=== PATIENT | male | born 1955 | race Caucasian/White ===

== ENCOUNTER 2017-10-16 12:46 | Inpatient (IN) | payer MEDICARE, MEDICAID ==
[~2017-10-16] VITALS: Ht 170.2 cm; Wt 77.0 kg
[~2017-10-16 12:46] MED LIST: ASPI-664 PO; CLOP75TA27 PO; CYAN500T46 PO; ERGO500014 PO; GABA300C16 PO; LANT3I SC; LOPE2CAP PO; OMEP10CA4 PO; ONDA4TAB8 PO; PRED1TAB2 PO; PRED5TAB PO; PSEU-83 PO; VANCOMYCIN 1 GM in NS 250 ML IVPB SCH; [UNRECOGNIZED DRUG - OTHER]
[2017-10-16] MEDS ORDERED: SODIUM CHLORIDE 0.9% 1L BAG IV* STA (13:01)
--- NOTE | 2017-10-16 13:40 | RADRPT ---
PROCEDURE: XR Chest. CLINICAL INDICATION: Chest pain , sepsis TECHNIQUE: Single frontal view of the chest was obtained COMPARISON: CR CHEST 12/07/2015 FINDINGS: The heart is enlarged. The lungs are clear. There is no pleural effusion or pneumothorax. RPTAT: AA IMPRESSION: Mild cardiomegaly. No focal infiltrate. .Philip Bishop MD, MD Date Time Electronically viewed and signed by .Philip Bishop MD, MD on 10/16/2017 13:40 .S/
[2017-10-16 13:57] LABS: BASOPHILS % 0.4 % (0.0-2.0); EOSINOPHILS # 0.1 10^3/ul (0.0-0.5); EOSINOPHILS % 1.7 % (0.0-7.0); HEMATOCRIT 28.2 % (42.0-52.0); LYMPHOCYTES # 0.7 10^3/ul (0.8-2.9); LYMPHOCYTES % 9.2 % (15.0-51.0); MEAN CORPUSCULAR HEMOGLOBIN 28.9 pg (29.0-33.0); MEAN CORPUSCULAR HGB CONC 31.9 g/dl (32.0-37.0); MEAN CORPUSCULAR VOLUME 90.7 fl (82.0-101.0); MEAN PLATELET VOLUME 9.7 fl (7.4-10.4); MONOCYTE # 0.4 10^3/ul (0.3-0.9); MONOCYTES % 4.6 % (0.0-11.0); NEUTROPHIL # 6.5 10^3/ul (1.6-7.5); NEUTROPHILS % 83.7 % (39.0-77.0); PLATELET COUNT 386 10^3/UL (140-415); RED BLOOD COUNT 3.11 10^6/ul (4.70-6.10); RED CELL DISTRIBUTION WIDTH 12.5 % (11.5-14.5); WHITE BLOOD COUNT 7.8 10^3/ul (4.8-10.8)
[2017-10-16] MEDS ORDERED: NACL 0.9% 3 ML SYG IV SCH (14:00)
[2017-10-16] MEDS ORDERED: BROMFENAC SODIUM 1.7 ML OPH DROP LEFT EYE PRN (14:00)
[2017-10-16] MEDS ORDERED: VANCOMYCIN IV PER PHARMACY XX SCH (14:00)
[2017-10-16] MEDS: ACCU-CHEK XX SCH ×2 (14:00→19:50)
[2017-10-16] MEDS ORDERED: LOPERAMIDE 2 MG CAP PO PRN (14:00)
[2017-10-16] MEDS ORDERED: HYDROCODONE/APAP (5/325) TAB PO PRN ×2 (14:00)
[2017-10-16 14:12] LABS: INR 1.09; PROTIME 14.3 Sec (11.9-14.9); PT RATIO 1.1
[2017-10-16 14:13] LABS: PARTIAL THROMBOPLASTIN TIME 35.4 Sec (25.0-35.0)
[2017-10-16 14:16] LABS: ALANINE AMINOTRANSFERASE 25 IU/L (13-69); ALBUMIN 3.1 g/dl (3.3-4.9); ALKALINE PHOSPHATASE 108 IU/L (42-121); ANION GAP 12 (8-16); ASPARTATE AMINO TRANSFERASE 18 IU/L (15-46); BILIRUBIN,INDIRECT 0.2 mg/dl (0-1.1); BILIRUBIN,TOTAL 0.2 mg/dl (0.2-1.3); BLOOD UREA NITROGEN 19 mg/dl (7-20); CARBON DIOXIDE 30 mmol/L (21-31); CHLORIDE 101 mmol/L (97-110); CREATININE 1.17 mg/dl (0.61-1.24); GLUCOSE 188 mg/dl (70-220); POTASSIUM 4.4 mmol/L (3.5-5.1); SODIUM 139 mmol/L (135-144); TOTAL PROTEIN 7.5 g/dl (6.1-8.1)
[2017-10-16] MEDS ORDERED: PIPER-TAZO 3.375 GM IV (PMX) 50 ML IV ONE (14:30)
[2017-10-16 14:31] LABS: TROPONIN-I < 0.012 ng/ml (0.00-0.12)
--- NOTE | 2017-10-16 14:39 | ERD ---
ER Documentation Chief Complaint Chief Complaint RIGHT HAND CELLULITIS X1.5MNTHS HPI Patient is a 61-year-old male with diabetes who presents with a right wrist infection. The patient was sent by Dr. Stovall and electrical parts reconditioner for infection. The patient said that he has been going on for 1 month and is getting worse. He said that he noticed a "huge bump" on the dorsal portion of the wrist. The patient is right-handed. He had a fever last week which he said was low-grade. He has not had any antibiotics as of yet. He was seen by Dr. Oakes from hand surgery previously as well who initially thought this could be pseudogout. ROS All systems reviewed and are negative except as per history of present illness. Medications Home Meds Active Scripts Ergocalciferol* (Drisdol* (Vitamin D2)) 50,000 Unit Cap, [address] UNIT PO Fr@09, # 10 CAP Prov:JIN STOVALL MD 12/08/15 Insulin Glargine* (Lantus*) 100 Unit/Ml Soln, 10 UNIT SC Q12 for 30 Days, 2 Refills Prov:JIN STOVALL MD 12/08/15 Reported Medications Cyanocobalamin* (Vitamin B12*) 500 Mcg Tab, 1000 MCG PO DAILY, TAB 02/16/16 [tear dropps] No Conflict Check 12/26/15 Ondansetron Hcl* (Zofran*) 4 Mg Tablet, 4 MG PO Q8, TAB 12/26/15 Omeprazole* (Omeprazole*) 10 Mg Capsule.dr, 10 MG PO DAILY, #30 CAP 12/26/15 Aspirin* (Aspirin* EC) 81 Mg Tablet.dr, 81 MG PO DAILY, TAB 12/26/15 Clopidogrel Bisulfate (Clopidogrel) 75 Mg Tablet, 75 MG PO DAILY, #30 TAB 12/26/15 Prednisone* (Prednisone*) 1 Mg Tablet, 1 MG PO QPM, TAB 12/26/15 Loperamide Hcl* (Imodium*) 2 Mg Capsule, 2 MG PO .WITH EACH DIARRHEA Y for DIARRHEA, CAP MAX 16 mg/day 11/30/15 Pseudoephedrin Hcl* (Nexafed) 30 Mg Tablet, 30 MG PO DAILY Y for CONGESTION, TAB 11/30/15 Prednisone* (Prednisone*) 5 Mg Tab, 3.5 MG PO QAM, TAB 11/30/15 Gabapentin* (Gabapentin*) 300 Mg Capsule, 300 MG PO QID, #90 CAP 11/30/15 Allergies Allergies: Coded Allergies: No Known Allergy (Unverified , 01/23/16) PMhx/Soc History of Surgery: Yes (R 2nd finger amputation, L BKA) Anesthesia Reaction: No Hx Neurological Disorder: No Hx Respiratory Disorders: No Hx Cardiac Disorders: No Hx Psychiatric Problems: No Hx Miscellaneous Medical Probl: Yes (htn, dm, asthma) Hx Alcohol Use: No Hx Substance Use: No Hx Tobacco Use: No FmHx Family History: diabetes Physical Exam Vitals Vital Signs Date Time Temp Pulse Resp B/P Pulse Ox O2 Delivery O2 Flow Rate FiO2 10/16/17 12:52 97.8 88 12 172/70 98 Physical Exam Const: no Acute distress Head: Atraumatic Eyes: Normal Conjunctiva ENT: Normal External Ears, Nose and Mouth. Neck: Full range of motion..~ No meningismus. Resp: Clear to auscultation bilaterally Cardio: Regular rate and rhythm, no murmurs Abd: Soft, non tender, non distended. Normal bowel sounds Skin: Cellulitis to the dorsum of the distal right wrist with fluctuance and abscess formation with likely septic joint Back: No midline or flank tenderness Ext: No cyanosis, or edema, right wrist pain with range of motion Neur: Awake and alert Psych: Normal Mood and Affect Result Diagram: 10/16/17 1330 10/16/17 1330 Results 24 hrs Laboratory Tests Test 10/16/17 13:30 White Blood Count 7.810^3/ul Red Blood Count 3.1110^6/ul Hemoglobin 9.0g/dl Hematocrit 28.2% Mean Corpuscular Volume 90.7fl Mean Corpuscular Hemoglobin 28.9pg Mean Corpuscular Hemoglobin Concent 31.9g/dl Red Cell Distribution Width 12.5% Platelet Count 67758^3/UL Mean Platelet Volume 9.7fl Neutrophils % 83.7% Lymphocytes % 9.2% Monocytes % 4.6% Eosinophils % 1.7% Basophils % 0.4% Nucleated Red Blood Cells % 0.0/100WBC Neutrophils # 6.510^3/ul Lymphocytes # 0.710^3/ul Monocytes # 0.410^3/ul Eosinophils # 0.110^3/ul Basophils # 0.010^3/ul Nucleated Red Blood Cells # 0.010^3/ul Prothrombin Time 14.3Sec Prothrombin Time Ratio 1.1 INR International Normalized Ratio 1.09 Activated Partial Thromboplast Time 35.4Sec Sodium Level 139mmol/L Potassium Level 4.4mmol/L Chloride Level 101mmol/L Carbon Dioxide Level 30mmol/L Anion Gap 12 Blood Urea Nitrogen 19mg/dl Creatinine 1.17mg/dl Glucose Level 188mg/dl Hemoglobin A1c 10.1% Lactic Acid Level 1.0mmol/L Calcium Level 9.0mg/dl Total Bilirubin 0.2mg/dl Direct Bilirubin 0.00mg/dl Indirect Bilirubin 0.2mg/dl Aspartate Amino Transf (AST/SGOT) 18IU/L Alanine Aminotransferase (ALT/SGPT) 25IU/L Alkaline Phosphatase 108IU/L Troponin I < 0.012ng/ml Total Protein 7.5g/dl Albumin 3.1g/dl Globulin 4.40g/dl Albumin/Globulin Ratio 0.70 Current Medications Medications (Trade) Dose Ordered Sig/Vern Route PRN Reason Start Time Stop Time Status Last Admin Dose Admin Sodium Chloride (NS) 2,100 ml BOLUS OVER 2 HOURS STAT IV* 10/16/17 13:01 10/16/17 13:02 DC IV Flush (NS 3 ml) 3 ml PER PROTOCOL IV 10/16/17 14:00 UNV Acetaminophen (Tylenol Tab) 650 mg Q6H PRN PO PAIN LEVEL 1-3 OR FEVER 10/16/17 14:00 UNV Acetaminophen/ Hydrocodone Bitart ([place] (5/325)) 1 tab Q6H PRN PO MODERATE PAIN LEVEL 4-6 10/16/17 14:00 UNV Acetaminophen/ Hydrocodone Bitart ([place] (5/325)) 2 tab Q6H PRN PO SEVERE PAIN LEVEL 7-10 10/16/17 14:00 UNV Famotidine (Pepcid) 20 mg Q12 PO 10/16/17 21:00 UNV Heparin Sodium (Porcine) (Heparin (5000 Units/0.5 ml)) 5,000 unit Q8 SC 10/16/17 14:00 UNV Vancomycin HCl (Vanco Iv Per Pharmacy) 1 ea PER PROTOCOL XX 10/16/17 14:00 UNV Ciprofloxacin (Cipro) 500 mg BID PO 10/16/17 14:00 UNV Aspirin (Halfprin) 81 mg DAILY PO 10/17/17 09:00 UNV Clopidogrel Bisulfate (plaVIX) 75 mg DAILY PO 10/17/17 09:00 UNV Cyanocobalamin (Vitamin B12) 1,000 mcg DAILY PO 10/17/17 09:00 UNV Gabapentin (Neurontin) 300 mg QID PO 10/16/17 17:00 UNV Insulin Glargine (Lantus) 21 unit QHS SC 10/16/17 21:00 UNV Loperamide HCl (Imodium Cap) 2 mg WITH EACH DIARRHEA PRN PO DIARRHEA 10/16/17 14:00 UNV Prednisone (Prednisone) 1 mg QPM PO 10/16/17 21:00 UNV Prednisone (Prednisone) 3.5 mg QAM PO 10/17/17 09:00 UNV Pantoprazole (Protonix Tab) 40 mg QAM PO 10/17/17 09:00 UNV Moxifloxacin HCl (Vigamox) 1 drop QID LEFT EYE 10/16/17 17:00 UNV Bromfenac Sodium (Bromday) 1 drop BID PRN LEFT EYE pain 10/16/17 14:00 UNV Miscellaneous Information (* Miscellaneous Pharmacy Order) Discontinue current oral sulfonylur... ONCE ONCE XX 10/16/17 14:00 10/16/17 14:01 UNV Diagnostic Test (Pha) (Accu-Chek) 1 ea 02 XX 10/17/17 02:00 UNV Diagnostic Test (Pha) (Accu-Chek) 1 ea 2 HOURS AFTER MEALS XX 10/16/17 14:00 UNV Insulin Aspart (Novolog Insulin Pen) 3 unit WITH MEALS SC 10/16/17 18:00 UNV Miscellaneous Information (* Miscellaneous Pharmacy Order) HYPOGLYCEMIA PROTOCOL w... ONCE ONCE XX 10/16/17 14:00 10/16/17 14:01 UNV Insulin Aspart (Novolog Insulin Pen) NOVOLOG *MILD* ALGORITHM WITH MEALS BEDTIME SC 10/16/17 18:00 UNV Miscellaneous Information (* Miscellaneous Pharmacy Order) Discontinue all previ... ONCE ONCE XX 10/16/17 14:00 10/16/17 14:01 UNV Losartan Potassium 50 mg 50 mg QHS PO 12/7/17 21:00 UNV Piperacillin Sod/ Tazobactam Sod (Zosyn 3.375gm/ 50 ml (Pmx)) 50 ml @ 100 mls/hr ONCE ONCE IV 10/16/17 14:30 10/16/17 14:59 Procedures/MDM EKG read by me: Rate/Rhythm: Regular rate and rhythm at a normal rate Intervals: Normal Impression: No evidence of ischemia or arrhythmia Chest x-ray shows no pneumonia per radiology. Admit MDM: Patient's infectious symptoms have not stabilized and the patient is at risk of rapid decompensation. The patient will be admitted for careful hydration, antibiotic therapy, and infectious source control. Severe Sepsis criteria: Infectious source: Right wrist cellulitis with septic joint End organ damage indicated by: No end organ damage at this time Sepsis Management: Time of recognition of sepsis: Upon arrival Within 3 hours of recognition: Blood cultures x 2 before broad-spectrum antibiotics: Yes 30 ml/kg NS bolus Completed Initial lactate 1.0 Repeat lactate pending Time of recognition of septic shock: No septic shock Septic Shock Assessment: Any lactic acid > 4.0 No Persistent hypotension (SBP < 90 or 40 mmHg drop, MAP < 65) despite 30 mL/kg IV fluid bolus No Volume Re-assessment for Septic Shock (post 30 ml/kg bolus): No septic shock at this time Persistent Hypotension Treatment: Comfort care No Central line Not Required Vasopressor started Not required I considered further perfusion assessment with CVP measurement, SCVO2, bedside ultrasound volume assessment, passive leg raise, trial of further fluid bolus. And proceeded with 30 ml/kg fluid bolus of NSS, broad spectrum antibiotics, and admission. Accepting Care Team Current data and ongoing care discussed. Admitting Physician: Dr. Stovall Clinical Resource Manager(s): Dr. Oakes was called from hand surgery and I am awaiting a callback at this time Outstanding Data: Culture results and repeat lactic acid Critical Care: Critical care time 35 minutes excluding all billable procedures Emergent fluid management while maintaining close respiratory support. Provision of immediate and broad-spectrum antibiotic therapy. Simultaneous assessment for possible sources in order to direct targeted therapy. Consideration for invasive and chemical support to prevent cardiopulmonary collapse. Departure Diagnosis: Primary Impression: Sepsis Sepsis type: sepsis due to unspecified organism Qualified Code: A41.9 - Sepsis, due to unspecified organism Additional Impression: Septic joint of right wrist Septic arthritis organism: due to unspecified organism Qualified Code: M00.9 - Pyogenic arthritis of right wrist, due to unspecified organism Condition: DIANA North MD Oct 16, 2017 14:39
[2017-10-16] MEDS ORDERED: GLUCAGON 1 MG INJ IM PRN (15:30)
[2017-10-16] MEDS ORDERED: GLUCOSE GEL 15 GRAM TUBE PO PRN ×2 (15:30)
[2017-10-16] MEDS ORDERED: GLUCOSE GEL 15 GRAM TUBE BUCCAL PRN (15:30)
[2017-10-16] MEDS ORDERED: DEXTROSE 50% 50 ML SYRINGE IV PRN ×2 (15:30)
[2017-10-16 16:06] VITALS: TEMP 98.3
[2017-10-16 17:02] VITALS: BP 165/90; PULSE 85; RESP 20
[2017-10-16 17:16] VITALS: Ht 170.2 cm; Wt 77.0 kg
[2017-10-16] MEDS: INSULIN ASPART [NOVOLOG] 3 ML PEN SC SCH ×3 (18:00→21:00)
[2017-10-16] MEDS ORDERED: VANCOMYCIN 1.5 GM in SOD CHLORIDE 0.9% 250 ML IVPB SCH (18:30)
[2017-10-16] MEDS ORDERED: morphine 2 MG INJ IV PRN (19:00)
--- NOTE | 2017-10-16 19:39 | CONS ---
DATE OF ADMISSION: 10/16/2017 DATE OF CONSULTATION: 10/16/2017 TYPE OF CONSULTATION: Infectious disease. REASON FOR CONSULTATION: Antibiotic management. HISTORY OF PRESENT ILLNESS: Artis Estevez is a 61-year-old male with a history of diabetes mellitus w ted presents with right wrist infection. He was seen by Dr. Stovall and a intermediate school teacher for infection of the wrist. This has been going on for 1 month and is getting worse. He noticed a large bump on the dorsum of his wrist. The patient is right-handed. He had fever last week which was low-grade. He has not been on any antibiotics. He was seen by Dr. Oakes from hand surgery previously as well w ted initially thought this could be pseudogout. PAST MEDICAL HISTORY: Includes: 1. Adult-onset diabetes mellitus. 2. Status post right finger amputation. 3. Left BKA. 4. Hypertension. 5. Diabetes. 6. Asthma. On admission, white count 7.8, H and H 9 and 28.2, platelet count 386,000, BUN and creatinine 19/1.1 7, glucose of 188. PAST MEDICAL HISTORY: Operations as outlined. FAMILY HISTORY: Noncontributory. SOCIAL HISTORY: Does not smoke, drink or abuse drugs. ALLERGIES: NONE TO PENICILLIN, SULFA OR FOODS. MEDICATIONS: Per chart. REVIEW OF SYSTEMS: As per HPI. PHYSICAL EXAMINATION: GENERAL: The patient is an elderly-appearing male who is awake, responsive, in no acute distress. VITAL SIGNS: Stable. He is afebrile. SKIN: Without generalized rash. HEENT: Within normal limits. NECK: Supple. LYMPH NODES: None palpable. CHEST: Decreased breath sounds at the bases. HEART: Without murmur or gallop. ABDOMEN: Soft, nontender, without organosplenomegaly or masses. EXTREMITIES: He has cellulitis from the dorsum of the right wrist with fluctuance and abscess forma tion. RECTAL AND GENITAL: Deferred. NEUROLOGIC: No focal neurological abnormality. IMPRESSION AND PLAN: The patient appears to have a septic joint. He should be aspirated by rheumat ology or by orthopedics. He is currently on vancomycin and ciprofloxacin. He was on Zosyn. Chest x-ray without abnormalities. The patient has blood cultures pending. Urine culture is pending, and stool culture is pending. I will dictate my findings to Dr. Stovall. We should get an aspiration of the joint and certainly, if necessary, wash out the joint itself. Dictated By: TYRELL CASTELLANO MD, JD/BILL Conf#: [id number] DID#: [id number] CC: JIN STOVALL MD;*EndCC*
[2017-10-16 20:00] VITALS: BP 158/90; PULSE 70; RESP 20
[2017-10-16] MEDS: INSULIN GLARGINE [LANtus] 3 ML PEN SC SCH (21:00)
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
[2017-10-16] MEDS: MOXIFLOXACIN 0.5% 3 ML OPH LEFT EYE SCH (22:12)
[2017-10-16] MEDS: GABAPENTIN 300 MG CAP PO SCH (22:12)
[2017-10-16] MEDS: predniSONE 1 MG TAB PO SCH (22:13)
[2017-10-16] MEDS: FAMOTIDINE 20 MG TAB PO SCH (22:13)
[2017-10-16] MEDS: LOSARTAN 50 MG TAB PO SCH (22:13)
[2017-10-16] MEDS: CIPROFLOXACIN 500 MG TAB PO SCH (22:13)
[2017-10-16] MEDS: HEPARIN 5,000 UNIT/0.5 ML VIAL SC SCH (22:21)
[2017-10-17] VITALS (14 sets, daily range): BP systolic 130–169; BP diastolic 64–85; PULSE 80–88; RESP 10–21
[2017-10-17] MEDS: ACCU-CHEK XX SCH ×5 (01:57→21:29)
[2017-10-17] MEDS: HEPARIN 5,000 UNIT/0.5 ML VIAL SC SCH ×2 (06:10→14:00)
[2017-10-17 06:28] LABS: ABNORMAL IP MESSAGE 1; HEMATOCRIT 21.6 % (42.0-52.0); MEAN CORPUSCULAR HEMOGLOBIN 28.8 pg (29.0-33.0); MEAN CORPUSCULAR HGB CONC 31.5 g/dl (32.0-37.0); MEAN CORPUSCULAR VOLUME 91.5 fl (82.0-101.0); MEAN PLATELET VOLUME 9.9 fl (7.4-10.4); PLATELET COUNT 296 10^3/UL (140-415); POSITIVE DIFF @See below; RED BLOOD COUNT 2.36 10^6/ul (4.70-6.10); RED CELL DISTRIBUTION WIDTH 12.5 % (11.5-14.5); WHITE BLOOD COUNT 7.7 10^3/ul (4.8-10.8)
[2017-10-17] MEDS ORDERED: VANCOMYCIN 1 GM in NS 250 ML IVPB SCH (06:30)
[2017-10-17 06:55] LABS: ALBUMIN 2.2 g/dl (3.3-4.9); ALBUMIN/GLOBULIN RATIO 0.59; BILIRUBIN,INDIRECT 0.2 mg/dl (0-1.1); BILIRUBIN,TOTAL 0.2 mg/dl (0.2-1.3); CALCIUM 8.1 mg/dl (8.4-10.2); CREATININE 1.21 mg/dl (0.61-1.24); POTASSIUM 4.4 mmol/L (3.5-5.1); TOTAL PROTEIN 5.9 g/dl (6.1-8.1)
[2017-10-17] MEDS ORDERED: EPHEDrine SULFATE 50 MG/5 ML SYG ONE (07:00)
[2017-10-17 07:26] LABS: HEMOGLOBIN 6.8 g/dl (14.0-18.0)
[2017-10-17] MEDS: INSULIN ASPART [NOVOLOG] 3 ML PEN SC SCH ×7 (08:01→21:00)
[2017-10-17 10:11] LABS: BASOPHILS % (M) 1 % (0-2); EOSINOPHILS % (M) 2 % (0-7); MONOCYTES % (M) 6 % (0-11); PLATELET ESTIMATE NORMAL; POLYCHROMASIA 3+ (0-0)
[2017-10-17 10:26] LABS: BASOPHILS % 0.4 % (0.0-2.0); EOSINOPHILS # 0.2 10^3/ul (0.0-0.5); EOSINOPHILS % 2.5 % (0.0-7.0); HEMATOCRIT 22.5 % (42.0-52.0); LYMPHOCYTES % 14.7 % (15.0-51.0); MEAN CORPUSCULAR HGB CONC 31.1 g/dl (32.0-37.0); MEAN CORPUSCULAR VOLUME 93.4 fl (82.0-101.0); MEAN PLATELET VOLUME 10.1 fl (7.4-10.4); MONOCYTE # 0.4 10^3/ul (0.3-0.9); MONOCYTES % 6.4 % (0.0-11.0); NEUTROPHIL # 5.2 10^3/ul (1.6-7.5); NEUTROPHILS % 75.4 % (39.0-77.0); PLATELET COUNT 313 10^3/UL (140-415); RED BLOOD COUNT 2.41 10^6/ul (4.70-6.10); RED CELL DISTRIBUTION WIDTH 12.5 % (11.5-14.5); WHITE BLOOD COUNT 6.9 10^3/ul (4.8-10.8)
[2017-10-17] MEDS: PANTOPRAZOLE (EC) 40 MG TAB PO SCH (10:38)
[2017-10-17] MEDS: predniSONE 1 MG TAB PO SCH ×2 (10:38→20:57)
[2017-10-17] MEDS: ASPIRIN (EC) 81 MG TAB PO SCH (10:38)
[2017-10-17] MEDS: CYANOCOBALAMIN 500 MCG TAB PO SCH (10:38)
[2017-10-17] MEDS: FAMOTIDINE 20 MG TAB PO SCH ×2 (10:38→20:51)
[2017-10-17] MEDS: CLOPIDOGREL 75 MG TAB PO SCH (10:38)
[2017-10-17] MEDS: CIPROFLOXACIN 500 MG TAB PO SCH ×2 (10:38→20:51)
[2017-10-17] MEDS: GABAPENTIN 300 MG CAP PO SCH ×4 (10:38→20:51)
[2017-10-17] MEDS: predniSONE 2.5 MG TAB PO SCH (10:39)
[2017-10-17] MEDS: MOXIFLOXACIN 0.5% 3 ML OPH LEFT EYE SCH ×4 (10:40→20:52)
[2017-10-17] MEDS ORDERED: FENTAnyl 50 MCG/ML VIAL ONE (13:15)
[2017-10-17] MEDS ORDERED: LIDOCAINE 2% (SDV) 5 ML INJ ONE (13:15)
[2017-10-17] MEDS ORDERED: PROPOFOL 20 ML ONE (13:15)
[2017-10-17] MEDS ORDERED: MIDAZOLAM 1 MG/ML 2 ML INJ ONE (13:17)
--- NOTE | 2017-10-17 13:47 | CONS ---
Date/Time of Note Date/Time of Note DATE: 10/17/17 TIME: 13:41 Consult Date/Type/Reason Admit Date/Time Oct 16, 2017 at 13:55 Initial Consult Date 10/16/17 1800 Type of Consultation: Ortho/Hand Reason for Consultation right wrist swelling/ infection Ordering Provider: JIN BAEZ MD Subjective Pain is controlled. Denies chills. C/o right wrist pain Objective Vital Signs Date Time Temp Pulse Resp B/P Pulse Ox O2 Delivery O2 Flow Rate FiO2 10/17/17 08:41 99.2 81 16 155/85 95 10/17/17 02:38 Room Air Intake and Output 10/16/17 10/16/17 10/17/17 15:00 23:00 07:00 Intake Total 250 ml Balance 250 ml Exam Right wrist with moderate swelling continued drainage of hematoma no gross pus Results/Medications Result Diagram: 10/17/17 0820 10/17/17 0545 Results 24 hrs Laboratory Tests Test 10/16/17 17:10 10/16/17 17:57 10/16/17 21:05 10/16/17 22:11 Lactic Acid Level 1.0 1.1 Bedside Glucose 127 109 Test 10/17/17 05:45 10/17/17 07:58 10/17/17 08:20 10/17/17 10:44 White Blood Count 7.7 6.9 Red Blood Count 2.36 #L 2.41 L Hemoglobin 6.8 #*L 7.0 L Hematocrit 21.6 #L 22.5 L Mean Corpuscular Volume 91.5 93.4 Mean Corpuscular Hemoglobin 28.8 L 29.0 Mean Corpuscular Hemoglobin Concent 31.5 L 31.1 L Red Cell Distribution Width 12.5 12.5 Platelet Count 296 # 313 Mean Platelet Volume 9.9 10.1 Neutrophils % 75.4 Segmented Neutrophils % (Manual) 81 H Band Neutrophils % (Manual) 4 Lymphocytes % 14.7 L Lymphocytes % (Manual) 6 L Monocytes % 6.4 Monocytes % (Manual) 6 Eosinophils % 2.5 Eosinophils % (Manual) 2 Basophils % 0.4 Basophils % (Manual) 1 Nucleated Red Blood Cells % 0.0 0.0 Neutrophils # 5.2 Neutrophils # (Manual) 6.3 Band Neutrophils # 0.3 Absolute Lymphocytes (Manual) 0.4 L Lymphocytes # 1.0 Monocytes # 0.4 Absolute Monocytes (Manual) 0.4 Eosinophils # 0.2 Basophils # 0.0 Basophils # (Manual) 0.0 Nucleated Red Blood Cells # 0.0 Platelet Estimate NORMAL Polychromasia 3+ Sodium Level 138 Potassium Level 4.4 Chloride Level 106 Carbon Dioxide Level 29 Anion Gap 7 L Blood Urea Nitrogen 16 Creatinine 1.21 Glucose Level 114 # Calcium Level 8.1 L Total Bilirubin 0.2 Direct Bilirubin 0.00 Indirect Bilirubin 0.2 Aspartate Amino Transf (AST/SGOT) 12 L Alanine Aminotransferase (ALT/SGPT) 32 Alkaline Phosphatase 69 Total Protein 5.9 #L Albumin 2.2 L Globulin 3.70 H Albumin/Globulin Ratio 0.59 Bedside Glucose 108 105 Test 10/17/17 12:07 Bedside Glucose 109 Culture of wound: prelim: 3+ Staph aureus Medications Current Medications Acetaminophen (Tylenol Tab) 650 mg Q6H PRN PO PAIN LEVEL 1-3 OR FEVER; Start 10/16/17 at 14:00 Acetaminophen/ Hydrocodone Bitart ([place] (5/325)) 1 tab Q6H PRN PO MODERATE PAIN LEVEL 4-6; Start 10/16/17 at 14:00 Acetaminophen/ Hydrocodone Bitart ([place] (5/325)) 2 tab Q6H PRN PO SEVERE PAIN LEVEL 7-10; Start 10/16/17 at 14:00 Famotidine (Pepcid) 20 mg Q12 PO Last administered on 10/17/17 10:38; Admin Dose 20 MG; Start 10/16/17 at 21:00 Heparin Sodium (Porcine) (Heparin (5000 Units/0.5 ml)) 5,000 unit Q8 SC Last administered on 10/17/17 06:10; Admin Dose 5,000 UNIT; Start 10/16/17 at 22:00 Ciprofloxacin (Cipro) 500 mg BID PO Last administered on 10/17/17 10:38; Admin Dose 500 MG; Start 10/16/17 at 20:00 Aspirin (Halfprin) 81 mg DAILY PO Last administered on 10/17/17 10:38; Admin Dose 81 MG; Start 10/17/17 at 09:00 Clopidogrel Bisulfate (plaVIX) 75 mg DAILY PO Last administered on 10/17/17 10 :38; Admin Dose 75 MG; Start 10/17/17 at 09:00 Cyanocobalamin (Vitamin B12) 1,000 mcg DAILY PO Last administered on 10/17/17 10:38; Admin Dose 1,000 MCG; Start 10/17/17 at 09:00 Gabapentin (Neurontin) 300 mg QID PO Last administered on 10/17/17 12:48; Admin Dose 300 MG; Start 10/16/17 at 21:00 Insulin Glargine (Lantus) 21 unit QHS SC ; Start 10/16/17 at 21:00 Prednisone (Prednisone) 1 mg BID PO Last administered on 10/17/17 10:38; Admin Dose 1 MG; Start 10/16/17 at 21:00 Prednisone (Prednisone) 2.5 mg QAM PO Last administered on 10/17/17 10:39; Admin Dose 2.5 MG; Start 10/17/17 at 09:00 Pantoprazole (Protonix Tab) 40 mg QAM PO Last administered on 10/17/17 10:38; Admin Dose 40 MG; Start 10/17/17 at 09:00 Moxifloxacin HCl (Vigamox) 1 drop QID LEFT EYE Last administered on 10/17/17 12:48; Admin Dose 1 DROP; Start 10/16/17 at 21:00 Bromfenac Sodium (Bromday) 1 drop BID PRN LEFT EYE pain; Start 10/16/17 at 14: 00 Diagnostic Test (Pha) (Accu-Chek) 1 ea 02 XX ; Start 10/17/17 at 02:00 Losartan Potassium (Cozaar) 50 mg QHS PO Last administered on 10/16/17 22:13; Admin Dose 50 MG; Start 10/16/17 at 21:00 Miscellaneous Information 1 ea NOTE XX ; Start 10/16/17 at 15:30 Glucose (Glutose) 15 gm Q15M PRN PO DECREASED GLUCOSE; Start 10/16/17 at 15:30 Glucose (Glutose) 22.5 gm Q15M PRN PO DECREASED GLUCOSE; Start 10/16/17 at 15: 30 Dextrose (D50w Syringe) 25 ml Q15M PRN IV DECREASED GLUCOSE; Start 10/16/17 at 15:30 Dextrose (D50w Syringe) 50 ml Q15M PRN IV DECREASED GLUCOSE; Start 10/16/17 at 15:30 Glucagon (Glucagen) 1 mg Q15M PRN IM DECREASED GLUCOSE; Start 10/16/17 at 15:30 Glucose (Glutose) 15 gm Q15M PRN BUCCAL DECREASED GLUCOSE; Start 10/16/17 at 15 :30 Morphine Sulfate (morphine) 2 mg Q2H PRN IV PAIN LEVEL 8-10 Last administered on 10/17/17t 00:39; Admin Dose 2 MG; Start 10/16/17 at 19:00 Influenza Virus Vaccine 0.5 ml 0.5 ml ONCE ONCE IM* ; Start 10/17/17 at 20:00; Stop 10/17/17 at 20:01 Vancomycin HCl/ Dextrose/Water (Vancocin/D5W) 150 ml @ 75 mls/hr Q12H IVPB ; Start 10/17/17 at 18:00 Miscellaneous Information (*Rx Drug Level Order Reminder*) 1 ONCE ONCE XX ; Start 10/18/17 at 05:00; Stop 10/18/17 at 05:01 Assessment/Plan Chief Complaint/Hosp Course Patient with pain and wrist swelling, now hematoma. MRI 10/10 inflammatory vs septic wrist. Culture is positive. Will take to OR for I&D anticipate 3-5d hospital stay postop Problems: Cont'd Hospitalization Reason: Surgery, IV antibiotics, pain control PAO CORDERO Oct 17, 2017 13:47
[2017-10-17] MEDS ORDERED: LIDOCAINE 1% (MPF) 30 ML INJ ONE (13:52)
[2017-10-17] MEDS ORDERED: BUPIVACAINE 0.25% (MPF) 30 ML INJ ONE (13:52)
[2017-10-17] MEDS ORDERED: BUPIVACAINE 0.5% (SDV) 30 ML INJ ONE (13:52)
[2017-10-17] MEDS ORDERED: BACITRACIN 50000 UNITS INJ ONE (13:57)
--- NOTE | 2017-10-17 13:58 | PN ---
DATE: 10/17/2017 SUBJECTIVE: No acute changes. Patient is alert, looks comfortable, no fevers. at bedside. LABORATORY DATA: WBC 6.9, platelets 313, no shift, no bands. BUN 16, creatinine 1.21. MICROBIOLOGY: Wound culture aspirated fluid culture of right wrist growing Staphylococcus aureus pr eliminary. ANTIMICROBIALS: The patient is on: 1. IV vancomycin. 2. Status post Zosyn. 3. Ciprofloxacin. PHYSICAL EXAMINATION: GENERAL: This is a well-developed, well-nourished elderly man who is alert, in no distress. HEENT: Head atraumatic, normocephalic. Sclerae anicteric. Buccal mucosa pink. NECK: Supple. CHEST: Rise symmetrical. Breath sounds clear. HEART: S1, S2. ABDOMEN: Soft, bowel tones present. EXTREMITIES: Right wrist dressing intact. ASSESSMENT: 1. Right wrist septic arthritis with cultures preliminarily growing Staphylococcus aureus. 2. Diabetes. 3. Hypertension. 4. History of left below knee amputation. 5. Anemia. PLAN: The patient remains stable on appropriate antimicrobials pending final cultures. Consider PI CC line placement for long-term IV antibiotics. Dictated By: JOB PLASCENCIA CARD FIXER for TYRELL KNAPP/BILL Conf#: [id number] DID#: [id number]
[2017-10-17] MEDS ORDERED: DEXAMETHASONE 4 MG/ML 1 ML INJ ONE (14:16)
[2017-10-17] MEDS ORDERED: ONDANSETRON 4 MG INJ ONE (14:16)
[2017-10-17] MEDS ORDERED: METOCLOPRAMIDE 10 MG INJ ONE (14:16)
[2017-10-17] MEDS ORDERED: FAMOTIDINE 20 MG INJ ONE (14:20)
[2017-10-17] MEDS ORDERED: LIDOCAINE 1% (MPF) 30 ML INJ INJ ONE (14:40)
[2017-10-17] MEDS ORDERED: BUPIVACAINE 0.5% (SDV) 30 ML INJ INJ ONE (14:42)
--- NOTE | 2017-10-17 15:07 | PN ---
Date/Time of Note Date/Time of Note DATE: 10/17/17 TIME: 15:05 Assessment/Plan VTE Prophylaxis VTE Prophylaxis Intervention: anti-embolic stocking Lines/Catheters [facility] Saline Lock Assessment/Plan Problems: (1) Septic arthritis of wrist, right Status: Acute Comment: He is in the OR getting the strain. Initial cultures from what the process automation engineer aspirated yesterday are not out yet. Patient is on presumptive antibiotics Qualifiers: Septic arthritis organism: due to unspecified organism Qualified Code: M00.9 - Pyogenic arthritis of right wrist, due to unspecified organism (2) Anemia Status: Acute Comment: The said demonstrate a brisk drop. While this does not prevent him from going for his I&D he will need to be transfused. Qualifiers: Anemia type: unspecified type Qualified Code: D64.9 - Anemia, unspecified type (3) Diabetes mellitus type 2 in nonobese Status: Chronic Comment: Adequate control (4) Hypogonadism in male Status: Acute Comment: Noted. (5) Adrenal insufficiency due to corticosteroid withdrawal Status: Chronic Comment: Stable. (6) Essential (primary) hypertension Status: Acute Comment: Adequate control Subjective 24 Hr Interval Summary Free Text/Dictation Patient is downstairs in operating room getting I&D and drainage of the wrist. Constitutional: no complaints ENT: no complaints Respiratory: no complaints Cardiovascular: no complaints Gastrointestinal: no complaints, other Exam/Review of Systems Vital Signs Vitals Vital Signs Date Time Temp Pulse Resp B/P Pulse Ox O2 Delivery O2 Flow Rate FiO2 10/17/17 08:41 99.2 81 16 155/85 95 10/17/17 02:38 Room Air Intake and Output 10/16/17 10/16/17 10/17/17 14:59 22:59 06:59 Intake Total 250 ml Balance 250 ml Exam Constitutional: alert, oriented Neck: non-tender, supple Respiratory: clear to auscultation, normal air movement Cardiovascular: nl pulses, regular rate and rhythm Results Result Diagram: 10/17/17 0820 10/17/17 0545 Results 24 hrs Laboratory Tests Test 10/16/17 17:10 10/16/17 17:57 10/16/17 21:05 10/16/17 22:11 Lactic Acid Level 1.0 1.1 Bedside Glucose 127 109 Test 10/17/17 05:45 10/17/17 07:58 10/17/17 08:20 10/17/17 10:44 White Blood Count 7.7 6.9 Red Blood Count 2.36 #L 2.41 L Hemoglobin 6.8 #*L 7.0 L Hematocrit 21.6 #L 22.5 L Mean Corpuscular Volume 91.5 93.4 Mean Corpuscular Hemoglobin 28.8 L 29.0 Mean Corpuscular Hemoglobin Concent 31.5 L 31.1 L Red Cell Distribution Width 12.5 12.5 Platelet Count 296 # 313 Mean Platelet Volume 9.9 10.1 Neutrophils % 75.4 Segmented Neutrophils % (Manual) 81 H Band Neutrophils % (Manual) 4 Lymphocytes % 14.7 L Lymphocytes % (Manual) 6 L Monocytes % 6.4 Monocytes % (Manual) 6 Eosinophils % 2.5 Eosinophils % (Manual) 2 Basophils % 0.4 Basophils % (Manual) 1 Nucleated Red Blood Cells % 0.0 0.0 Neutrophils # 5.2 Neutrophils # (Manual) 6.3 Band Neutrophils # 0.3 Absolute Lymphocytes (Manual) 0.4 L Lymphocytes # 1.0 Monocytes # 0.4 Absolute Monocytes (Manual) 0.4 Eosinophils # 0.2 Basophils # 0.0 Basophils # (Manual) 0.0 Nucleated Red Blood Cells # 0.0 Platelet Estimate NORMAL Polychromasia 3+ Sodium Level 138 Potassium Level 4.4 Chloride Level 106 Carbon Dioxide Level 29 Anion Gap 7 L Blood Urea Nitrogen 16 Creatinine 1.21 Glucose Level 114 # Calcium Level 8.1 L Total Bilirubin 0.2 Direct Bilirubin 0.00 Indirect Bilirubin 0.2 Aspartate Amino Transf (AST/SGOT) 12 L Alanine Aminotransferase (ALT/SGPT) 32 Alkaline Phosphatase 69 Total Protein 5.9 #L Albumin 2.2 L Globulin 3.70 H Albumin/Globulin Ratio 0.59 Bedside Glucose 108 105 Test 10/17/17 12:07 Bedside Glucose 109 Medications Medications Current Medications Acetaminophen (Tylenol Tab) 650 mg Q6H PRN PO PAIN LEVEL 1-3 OR FEVER; Start 10/16/17 at 14:00 Acetaminophen/ Hydrocodone Bitart ([place] (5/325)) 1 tab Q6H PRN PO MODERATE PAIN LEVEL 4-6; Start 10/16/17 at 14:00 Acetaminophen/ Hydrocodone Bitart ([place] (5/325)) 2 tab Q6H PRN PO SEVERE PAIN LEVEL 7-10; Start 10/16/17 at 14:00 Famotidine (Pepcid) 20 mg Q12 PO Last administered on 10/17/17 10:38; Admin Dose 20 MG; Start 10/16/17 at 21:00 Heparin Sodium (Porcine) (Heparin (5000 Units/0.5 ml)) 5,000 unit Q8 SC Last administered on 10/17/17 06:10; Admin Dose 5,000 UNIT; Start 10/16/17 at 22:00 Ciprofloxacin (Cipro) 500 mg BID PO Last administered on 10/17/17 10:38; Admin Dose 500 MG; Start 10/16/17 at 20:00 Aspirin (Halfprin) 81 mg DAILY PO Last administered on 10/17/17 10:38; Admin Dose 81 MG; Start 10/17/17 at 09:00 Clopidogrel Bisulfate (plaVIX) 75 mg DAILY PO Last administered on 10/17/17 10 :38; Admin Dose 75 MG; Start 10/17/17 at 09:00 Cyanocobalamin (Vitamin B12) 1,000 mcg DAILY PO Last administered on 10/17/17 10:38; Admin Dose 1,000 MCG; Start 10/17/17 at 09:00 Gabapentin (Neurontin) 300 mg QID PO Last administered on 10/17/17 12:48; Admin Dose 300 MG; Start 10/16/17 at 21:00 Insulin Glargine (Lantus) 21 unit QHS SC ; Start 10/16/17 at 21:00 Prednisone (Prednisone) 1 mg BID PO Last administered on 10/17/17 10:38; Admin Dose 1 MG; Start 10/16/17 at 21:00 Prednisone (Prednisone) 2.5 mg QAM PO Last administered on 10/17/17 10:39; Admin Dose 2.5 MG; Start 10/17/17 at 09:00 Pantoprazole (Protonix Tab) 40 mg QAM PO Last administered on 10/17/17 10:38; Admin Dose 40 MG; Start 10/17/17 at 09:00 Moxifloxacin HCl (Vigamox) 1 drop QID LEFT EYE Last administered on 10/17/17 12:48; Admin Dose 1 DROP; Start 10/16/17 at 21:00 Bromfenac Sodium (Bromday) 1 drop BID PRN LEFT EYE pain; Start 10/16/17 at 14: 00 Diagnostic Test (Pha) (Accu-Chek) 1 ea 02 XX ; Start 10/17/17 at 02:00 Losartan Potassium (Cozaar) 50 mg QHS PO Last administered on 10/16/17 22:13; Admin Dose 50 MG; Start 10/16/17 at 21:00 Miscellaneous Information 1 ea NOTE XX ; Start 10/16/17 at 15:30 Glucose (Glutose) 15 gm Q15M PRN PO DECREASED GLUCOSE; Start 10/16/17 at 15:30 Glucose (Glutose) 22.5 gm Q15M PRN PO DECREASED GLUCOSE; Start 10/16/17 at 15: 30 Dextrose (D50w Syringe) 25 ml Q15M PRN IV DECREASED GLUCOSE; Start 10/16/17 at 15:30 Dextrose (D50w Syringe) 50 ml Q15M PRN IV DECREASED GLUCOSE; Start 10/16/17 at 15:30 Glucagon (Glucagen) 1 mg Q15M PRN IM DECREASED GLUCOSE; Start 10/16/17 at 15:30 Glucose (Glutose) 15 gm Q15M PRN BUCCAL DECREASED GLUCOSE; Start 10/16/17 at 15 :30 Morphine Sulfate (morphine) 2 mg Q2H PRN IV PAIN LEVEL 8-10 Last administered on 10/17/17 00:39; Admin Dose 2 MG; Start 10/16/17 at 19:00 Influenza Virus Vaccine 0.5 ml 0.5 ml ONCE ONCE IM* ; Start 10/17/17 at 20:00; Stop 10/17/17 at 20:01 Vancomycin HCl/ Dextrose/Water (Vancocin/D5W) 150 ml @ 75 mls/hr Q12H IVPB ; Start 10/17/17 at 18:00 Miscellaneous Information (*Rx Drug Level Order Reminder*) 1 ONCE ONCE XX ; Start 10/18/17 at 05:00; Stop 10/18/17 at 05:01 JIN BAEZ MD Oct 17, 2017 15:07
[2017-10-17] MEDS ORDERED: BACITRACIN 50000 UNITS INJ IRR ONE (15:21)
--- NOTE | 2017-10-17 15:23 | SIPON ---
Date/Time of Note Date/Time of Note DATE: 10/17/17 TIME: 15:20 Operative Report Preoperative Diagnosis right wrist infected hematoma Postoperative Diagnosis same Operation/Procedure Performed I & D, athrotomy, synovial biopsy, tenosynovectomy of right wrist Surgeon see signature line faculty i on call medical assistant none Anesthesia: general Estimated blood loss: minimal Transfusion Required none Specimen synovium tenosynovium 2 cultures Grafts/Implants none Complications none PAO CORDERO Oct 17, 2017 15:23
[2017-10-17] MEDS ORDERED: TESTOSTERONE CYPIONATE 200 MG/ML INJ IM ONE (15:30)
[2017-10-17] MEDS ORDERED: FENTAnyl 50 MCG/ML VIAL IV PRN ×3 (15:30)
[2017-10-17] MEDS ORDERED: OXYCODONE/ACETAMINOPHEN (5/325) TAB PO PRN ×2 (15:30)
[2017-10-17] MEDS ORDERED: METOCLOPRAMIDE 10 MG INJ IV PRN (15:30)
[2017-10-17] MEDS ORDERED: LABETALOL HCL 20MG INJ IV PRN (15:30)
[2017-10-17] MEDS ORDERED: DIPHENHYDRAMINE 50 MG INJ IV PRN (15:30)
[2017-10-17] MEDS ORDERED: MEPERIDINE 25 MG INJ IV PRN (15:30)
[2017-10-17] MEDS ORDERED: NA PHOSPHATE/BIPHOS 133 ML ENEMA PR ONE (15:30)
[2017-10-17] MEDS ORDERED: ONDANSETRON 4 MG INJ IV PRN (15:30)
[2017-10-17] MEDS ORDERED: ALBUTEROL 0.083% (NEB) 2.5 MG/3 ML AMP HHN PRN (15:30)
[2017-10-17] MEDS ORDERED: VANCOMYCIN 750 MG in DEXTROSE 5% 150 ML IVPB SCH (18:00)
--- NOTE | 2017-10-17 18:02 | OPR ---
DATE OF OPERATION: 10/17/2017 PREOPERATIVE DIAGNOSIS: Right wrist hematoma, rule out septic wrist, rule out inflammatory arthriti s of wrist. POSTOPERATIVE DIAGNOSIS: Right wrist hematoma, rule out septic wrist, rule out inflammatory arthrit is of wrist. PROCEDURE: 1. Right wrist joint arthrotomy with synovial biopsy. 2. Right wrist tenosynovectomy and debridement. 3. Right wrist debridement of large, infected hematoma. 4. Short arm fiberglass splint application. SURGEON: Pao Oakes MD. SENIOR DIRECTOR FINANCE: None. ANESTHESIA: General by Alex Castrejon CRNA. ESTIMATED BLOOD LOSS: Minimal. TOURNIQUET TIME: Was 42 minutes. IV FLUIDS: 300 crystalloid. ANESTHESIA: General with LMA. COMPLICATIONS: Nil. SPECIMENS: 1. Specimen #1 included tenosynovium to pathology. 2. Specimen #2 included synovial biopsy and bone scrapings to pathology. 3. Specimen also included culture x2 to microbiology. DISPOSITION: To recovery in stable condition. DESCRIPTION OF PROCEDURE: The patient was brought to the operating room and placed on the operating table in supine position with a right arm board. A well-padded tourniquet was placed on the upper arm. Patient received general anesthesia without difficulty. Prior to prep, the skin overlying the proposed incision and the wrist joint itself was infiltrated with 10 mL of a lidocaine and Marcaine mixture. The right upper extremity was prepped and draped in the usual sterile fashion from the el bow distally using ChloraPrep. Incision was marked out. Extremity was not exsanguinated. Tourniqu et was inflated to pressure of 250 mmHg. The patient had a preexisting 1 cm hole where his hematoma had been draining which was over the middle of the middle metacarpal. This was extended proximally for a length of about 8 cm down towards the flare of the distal radius. Dissection continued down through skin and subcutaneous tissue. Care was taken to avoid any superficial neurovascular structu res. Monopolar electrocautery was used to cauterize skin edges. Dissection proceeded first subcuta neously. Skin edges were undermined. There was a large hematoma which was debrided and irrigated o ut. There was a lot of tenosynovitis as well, which was sharply debrided. Extensor tendons were id entified and the extensor retinaculum was opened for later repair. Care was taken to avoid injury t o the EPL tendon. We developed a plane between the third and fourth extensor compartments. The wri st extensor tendons were encased in copious tenosynovium, some of which was sharply cut away and sen t as a specimen. Again throughout the tenosynovial area, there was considerable inflammation but no actual pus. Wrist arthrotomy was carefully made over the capitate bone. Inspection of the wrist j oint revealed some inflammation of the synovial lining. There was no major effusion, although some fluid was sent for culture and there was no pus in the joint. The wrist joint was then irrigated wi th 3 liters of saline and bacitracin solution. The patient had a Hemovac placed into the subcutaneo us space of the hand. The extensor retinaculum was loosely repaired with Vicryl. Skin was closed w ith simple interrupted mattress sutures of 3-0 nylon. The incision was dressed with Xeroform, steri le gauze, sterile Webril and a volar fiberglass splint was fabricated with the fingers free. Tourni quet was deflated. Good perfusion of all fingers was observed. Patient left the operating room in stable condition. Sponge count correct. No medications. Dictated By: PAO ADORNO/BILL Conf#: [id number] DID#: [id number]
[2017-10-17] MEDS ORDERED: INFLUENZA VIRUS VACCINE 0.5 ML SYG IM* ONE (20:00)
[2017-10-17] MEDS: INSULIN GLARGINE [LANtus] 3 ML PEN SC SCH (20:55)
[2017-10-17] MEDS: LOSARTAN 50 MG TAB PO SCH (21:00)
[2017-10-17] MEDS: VANCOMYCIN 750 MG in DEXTROSE 5% 150 ML IVPB SCH (21:02)
[2017-10-18 01:30] VITALS: BP 141/65; RESP 14
[2017-10-18 06:16] LABS: ABNORMAL IP MESSAGE 1; BASOPHILS % 0.1 % (0.0-2.0); HEMATOCRIT 28.2 % (42.0-52.0); HEMOGLOBIN 9.1 g/dl (14.0-18.0); LYMPHOCYTES # 0.4 10^3/ul (0.8-2.9); LYMPHOCYTES % 4.9 % (15.0-51.0); MEAN CORPUSCULAR HEMOGLOBIN 28.7 pg (29.0-33.0); MEAN CORPUSCULAR HGB CONC 32.3 g/dl (32.0-37.0); MEAN PLATELET VOLUME 9.8 fl (7.4-10.4); MONOCYTE # 0.3 10^3/ul (0.3-0.9); MONOCYTES % 3.7 % (0.0-11.0); NEUTROPHIL # 7.2 10^3/ul (1.6-7.5); NEUTROPHILS % 90.7 % (39.0-77.0); PLATELET COUNT 295 10^3/UL (140-415); POSITIVE DIFF @See below; RED BLOOD COUNT 3.17 10^6/ul (4.70-6.10); WHITE BLOOD COUNT 7.9 10^3/ul (4.8-10.8)
[2017-10-18 06:43] LABS: CALCIUM 8.2 mg/dl (8.4-10.2); CREATININE 1.2 mg/dl (0.61-1.24); POTASSIUM 4.6 mmol/L (3.5-5.1)
[2017-10-18 07:39] VITALS: BP 134/64; RESP 18
[2017-10-18] MEDS: LOSARTAN 50 MG TAB PO SCH (08:34)
[2017-10-18] MEDS: FAMOTIDINE 20 MG TAB PO SCH ×2 (08:35→20:28)
[2017-10-18] MEDS: GABAPENTIN 300 MG CAP PO SCH ×4 (08:35→20:28)
[2017-10-18] MEDS: CIPROFLOXACIN 500 MG TAB PO SCH ×2 (08:35→20:28)
[2017-10-18] MEDS: MOXIFLOXACIN 0.5% 3 ML OPH LEFT EYE SCH ×4 (08:35→20:28)
[2017-10-18] MEDS: PANTOPRAZOLE (EC) 40 MG TAB PO SCH (08:35)
[2017-10-18] MEDS: CYANOCOBALAMIN 500 MCG TAB PO SCH (08:35)
[2017-10-18] MEDS: ASPIRIN (EC) 81 MG TAB PO SCH (08:35)
[2017-10-18] MEDS: CLOPIDOGREL 75 MG TAB PO SCH (08:35)
[2017-10-18] MEDS: predniSONE 2.5 MG TAB PO SCH (08:35)
[2017-10-18] MEDS: predniSONE 1 MG TAB PO SCH ×2 (08:35→20:28)
[2017-10-18] MEDS: INSULIN ASPART [NOVOLOG] 3 ML PEN SC SCH ×7 (08:41→20:32)
[2017-10-18] MEDS: VANCOMYCIN 750 MG in DEXTROSE 5% 150 ML IVPB SCH ×3 (09:54→22:41)
[2017-10-18] MEDS: ACCU-CHEK XX SCH ×3 (10:05→19:50)
[2017-10-18 13:35] VITALS: BP 118/51; RESP 16
--- NOTE | 2017-10-18 18:32 | CONS ---
Date/Time of Note Date/Time of Note DATE: 10/18/17 TIME: 18:32 Assessment/Plan Assessment/Plan Chief Complaint/Hosp Course ID PROGRESS NOTE TOTAL ABX DAY CURRENT ABX=>Vanco IV + Cipro s/p Zosyn 24H INTERVAL SUMMARY * VSS, NAD, no fevers, resting, WBC WNL, renal fx WNL, s/p PRBC Tx today POD #1-> S/P 10/17/17 PROCEDURE: 1. Right wrist joint arthrotomy with synovial biopsy. 2. Right wrist tenosynovectomy and debridement. 3. Right wrist debridement of large, infected hematoma. 4. Short arm fiberglass splint application. EXAM GENERAL: VSS, NAD HEENT: Unremarkable NECK: Supple, full ROM CHEST: Rise symmetrical, without dyspnea on observation ABDOMEN: Soft, NT EXTREMITIES: Warm, Hemovac to wrist SKIN: No diaphoresis, no rash ID ASSESSMENT: 61 yo M admit with: 1. Sepsis w/staph aureus septicemia 10/16/17 BCX (+) 2. Right wrist septic arthritis with cultures preliminarily growing Staphylococcus aureus. 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 Diabetes. 4. History of left below knee amputation. 5. Anemia. 6. Hypertension. INVASIVES: PIV ABX ALLERGY: KNDA CURRENT ABX=>Vanco IV + Cipro s/p Zosyn ID PLAN 1. Continue current ABX, will f/u on micro final pending . Problems: Consultation Date/Type/Reason Admit Date/Time Oct 16, 2017 at 13:55 Initial Consult Date Type of Consultation: ID Referring Provider: JIN BAEZ MD Exam/Review of Systems Vital Signs Vitals Vital Signs Date Time Temp Pulse Resp B/P Pulse Ox O2 Delivery O2 Flow Rate FiO2 10/18/17 13:35 98.1 78 16 118/51 99 10/17/17 20:00 Room Air 10/17/17 15:59 2.0 Intake and Output 10/17/17 10/17/17 10/18/17 15:00 23:00 07:00 Intake Total 700 ml 1320 ml Output Total 10 ml 0 ml 500 ml Balance 690 ml 0 ml 820 ml Results Result Diagram: 10/18/17 0537 10/18/17 0537 Results 24 hrs Laboratory Tests Test 10/17/17 20:46 10/18/17 05:37 10/18/17 07:55 10/18/17 12:00 Bedside Glucose 197 232 H 196 White Blood Count 7.9 Red Blood Count 3.17 #L Hemoglobin 9.1 #L Hematocrit 28.2 #L Mean Corpuscular Volume 89.0 Mean Corpuscular Hemoglobin 28.7 L Mean Corpuscular Hemoglobin Concent 32.3 Red Cell Distribution Width 13.0 Platelet Count 295 Mean Platelet Volume 9.8 Neutrophils % 90.7 H Lymphocytes % 4.9 L Monocytes % 3.7 Eosinophils % 0.0 Basophils % 0.1 Nucleated Red Blood Cells % 0.0 Neutrophils # 7.2 Lymphocytes # 0.4 L Monocytes # 0.3 Eosinophils # 0.0 Basophils # 0.0 Nucleated Red Blood Cells # 0.0 Sodium Level 136 Potassium Level 4.6 Chloride Level 104 Carbon Dioxide Level 25 Anion Gap 12 Blood Urea Nitrogen 20 Creatinine 1.20 Glucose Level 255 #H Calcium Level 8.2 L Test 10/18/17 13:31 10/18/17 14:14 10/18/17 17:35 Stool Occult Blood NEGATIVE Bedside Glucose 192 194 Medications Medications Current Medications Acetaminophen (Tylenol Tab) 650 mg Q6H PRN PO PAIN LEVEL 1-3 OR FEVER; Start 10/16/17 at 14:00 Acetaminophen/ Hydrocodone Bitart ([place] (5/325)) 1 tab Q6H PRN PO MODERATE PAIN LEVEL 4-6; Start 10/16/17 at 14:00 Acetaminophen/ Hydrocodone Bitart ([place] (5/325)) 2 tab Q6H PRN PO SEVERE PAIN LEVEL 7-10; Start 10/16/17 at 14:00 Famotidine (Pepcid) 20 mg Q12 PO Last administered on 10/18/17 08:35; Admin Dose 20 MG; Start 10/16/17 at 21:00 Heparin Sodium (Porcine) (Heparin (5000 Units/0.5 ml)) 5,000 unit Q8 SC Last administered on 10/17/17 06:10; Admin Dose 5,000 UNIT; Start 10/16/17 at 22:00 ; Status Future Hold Ciprofloxacin (Cipro) 500 mg BID PO Last administered on 10/18/17 08:35; Admin Dose 500 MG; Start 10/16/17 at 20:00 Aspirin (Halfprin) 81 mg DAILY PO Last administered on 10/18/17 08:35; Admin Dose 81 MG; Start 10/17/17 at 09:00 Clopidogrel Bisulfate (plaVIX) 75 mg DAILY PO Last administered on 10/18/17 08 :35; Admin Dose 75 MG; Start 10/17/17 at 09:00 Cyanocobalamin (Vitamin B12) 1,000 mcg DAILY PO Last administered on 10/18/17 08:35; Admin Dose 1,000 MCG; Start 10/17/17 at 09:00 Gabapentin (Neurontin) 300 mg QID PO Last administered on 10/18/17 17:37; Admin Dose 300 MG; Start 10/16/17 at 21:00 Insulin Glargine (Lantus) 21 unit QHS SC Last administered on 10/17/17 20:55; Admin Dose 21 UNIT; Start 10/16/17 at 21:00 Prednisone (Prednisone) 1 mg BID PO Last administered on 10/18/17 08:35; Admin Dose 1 MG; Start 10/16/17 at 21:00 Prednisone (Prednisone) 2.5 mg QAM PO Last administered on 10/18/17 08:35; Admin Dose 2.5 MG; Start 10/17/17 at 09:00 Pantoprazole (Protonix Tab) 40 mg QAM PO Last administered on 10/18/17 08:35; Admin Dose 40 MG; Start 10/17/17 at 09:00 Moxifloxacin HCl (Vigamox) 1 drop QID LEFT EYE Last administered on 10/18/17 17:37; Admin Dose 1 DROP; Start 10/16/17 at 21:00 Bromfenac Sodium (Bromday) 1 drop BID PRN LEFT EYE pain; Start 10/16/17 at 14: 00 Diagnostic Test (Pha) (Accu-Chek) 1 ea 02 XX ; Start 10/17/17 at 02:00 Miscellaneous Information 1 ea NOTE XX ; Start 10/16/17 at 15:30 Glucose (Glutose) 15 gm Q15M PRN PO DECREASED GLUCOSE; Start 10/16/17 at 15:30 Glucose (Glutose) 22.5 gm Q15M PRN PO DECREASED GLUCOSE; Start 10/16/17 at 15: 30 Dextrose (D50w Syringe) 25 ml Q15M PRN IV DECREASED GLUCOSE; Start 10/16/17 at 15:30 Dextrose (D50w Syringe) 50 ml Q15M PRN IV DECREASED GLUCOSE; Start 10/16/17 at 15:30 Glucagon (Glucagen) 1 mg Q15M PRN IM DECREASED GLUCOSE; Start 10/16/17 at 15:30 Glucose (Glutose) 15 gm Q15M PRN BUCCAL DECREASED GLUCOSE; Start 10/16/17 at 15 :30 Morphine Sulfate 2 mg 2 mg Q2H PRN IV PAIN LEVEL 8-10 Last administered on 10/17 00:39; Admin Dose 2 MG; Start 10/16/17 at 19:00 Vancomycin HCl/ Dextrose/Water (Vancocin/D5W) 150 ml @ 75 mls/hr Q12H IVPB Last administered on 10/18/17 09:54; Admin Dose 75 MLS/HR; Start 10/17/17 at 21 :00 Losartan Potassium (Cozaar) 50 mg AM PO Last administered on 10/18/17 08:34; Admin Dose 50 MG; Start 10/18/17 at 09:00 Miscellaneous Information (*Rx Drug Level Order Reminder*) VANCOMYCIN TROUGH ON ... ONCE ONCE XX ; Start 10/18/17 at 20:00; Stop 10/18/17 at 20:01 DONAL TREVIZO NP Oct 18, 2017 18:32
--- NOTE | 2017-10-18 19:16 | PN ---
Date/Time of Note Date/Time of Note DATE: 10/18/17 TIME: 19:08 Assessment/Plan Lines/Catheters IV Catheter Type (from [facility]): Saline Lock Assessment/Plan Chief Complaint/Hosp Course POD 1 s/p I & D, arthrotomy, synovectomy of right wrist joint Problems: Assessment/Plan POD 1 s/p I & D of R wrist hematoma possible septic wrist. Multiple cultures positive for Staph (MSSA). Clinically no pus seen in joint in OR. Intraoperative appearance more that of inflammatory arthritis. PICC line tomorrow. Plan for d/c home tomorrow or Friday on home IV ABx. I will remove drain Friday, if d/c home f/u with me Friday. Cont'd Hospitalization Reason: PICC Subjective 24 Hr Interval Summary Comfortable. Some pain but no meds requested. No chills Constitutional: ambulates, no complaints Feeding: advancing diet Pain Control: mild Exam/Review of Systems Vital Signs Vitals Vital Signs Date Time Temp Pulse Resp B/P Pulse Ox O2 Delivery O2 Flow Rate FiO2 10/18/17 13:35 98.1 78 16 118/51 99 10/17/17 20:00 Room Air 10/17/17 15:59 2.0 Intake and Output 10/17/17 10/17/17 10/18/17 15:00 23:00 07:00 Intake Total 700 ml 1320 ml Output Total 10 ml 0 ml 500 ml Balance 690 ml 0 ml 820 ml Exam Drains Minimal output from Hemovac R wrist (subcutaneous) Additional Comments Right wrist: operative dressing changed. Incision c/d/i. No drainage/ some blood on gauze. Decreased swelling compared to preop. Cap refill brisk and good finger motion. Drain in position. Results Result Diagram: 10/18/17 0537 10/18/17 0537 PAO CORDERO Oct 18, 2017 19:16
--- NOTE | 2017-10-18 19:39 | PN ---
Date/Time of Note Date/Time of Note DATE: 10/18/17 TIME: 11:00 Late entry Assessment/Plan VTE Prophylaxis VTE Prophylaxis Intervention: ambulation Lines/Catheters IV Catheter Type (from Nrs): Saline Lock Central line still needed: Yes Urinary Cath still in place: No Assessment/Plan Problems: (1) Diabetes mellitus type 2 in nonobese Status: Chronic Comment: good glycemic control up until today. this morning with glycemic excursion secondary to Decadron received during surgery. Will monitor and treat as needed. (2) Essential (primary) hypertension Status: Chronic Comment: good control (3) Peripheral vascular disease Status: Chronic Comment: previous BKA left lower extremity (4) Septic joint of right wrist Status: Acute Comment: Staph Aureus present in intial cultures. Recent cultures taken after surgery pending. On Ciprofloxacin and Vancomycin S/P surgery to evacuate hematoma of the right wrist Qualifiers: Septic arthritis organism: due to unspecified organism Qualified Code: M00.9 - Pyogenic arthritis of right wrist, due to unspecified organism (5) Adrenal insufficiency due to corticosteroid withdrawal Status: Chronic Comment: no issues at this time. Received Decadron intraoperatively. (6) Anemia Status: Acute Comment: Slight improvement after transfusion. Asymptomatic. No overt GI bleed. Qualifiers: Anemia type: unspecified type Qualified Code: D64.9 - Anemia, unspecified type Subjective 24 Hr Interval Summary Free Text/Dictation Patient without complaints. Anxious to go home Exam/Review of Systems Vital Signs Vitals Vital Signs Date Time Temp Pulse Resp B/P Pulse Ox O2 Delivery O2 Flow Rate FiO2 10/18/17 13:35 98.1 78 16 118/51 99 10/17/17 20:00 Room Air 10/17/17 15:59 2.0 Intake and Output 10/17/17 10/17/17 10/18/17 15:00 23:00 07:00 Intake Total 700 ml 1320 ml Output Total 10 ml 0 ml 500 ml Balance 690 ml 0 ml 820 ml Exam Constitutional: alert, oriented, well developed Neck: supple Respiratory: clear to auscultation Cardiovascular: regular rate and rhythm Gastrointestinal: soft Musculoskeletal: other (Left BKA Right arm in cast/bandage) Results POC glucose and labs reviewed Result Diagram: 10/18/17 0537 10/18/17 0537 Results 24 hrs Laboratory Tests Test 10/17/17 20:46 10/18/17 05:37 10/18/17 07:55 10/18/17 12:00 Bedside Glucose 197 232 H 196 White Blood Count 7.9 Red Blood Count 3.17 #L Hemoglobin 9.1 #L Hematocrit 28.2 #L Mean Corpuscular Volume 89.0 Mean Corpuscular Hemoglobin 28.7 L Mean Corpuscular Hemoglobin Concent 32.3 Red Cell Distribution Width 13.0 Platelet Count 295 Mean Platelet Volume 9.8 Neutrophils % 90.7 H Lymphocytes % 4.9 L Monocytes % 3.7 Eosinophils % 0.0 Basophils % 0.1 Nucleated Red Blood Cells % 0.0 Neutrophils # 7.2 Lymphocytes # 0.4 L Monocytes # 0.3 Eosinophils # 0.0 Basophils # 0.0 Nucleated Red Blood Cells # 0.0 Sodium Level 136 Potassium Level 4.6 Chloride Level 104 Carbon Dioxide Level 25 Anion Gap 12 Blood Urea Nitrogen 20 Creatinine 1.20 Glucose Level 255 #H Calcium Level 8.2 L Test 10/18/17 13:31 10/18/17 14:14 10/18/17 17:35 Stool Occult Blood NEGATIVE Bedside Glucose 192 194 Medications Medications Current Medications Acetaminophen (Tylenol Tab) 650 mg Q6H PRN PO PAIN LEVEL 1-3 OR FEVER; Start 10/16/17 at 14:00 Acetaminophen/ Hydrocodone Bitart ([place] (5/325)) 1 tab Q6H PRN PO MODERATE PAIN LEVEL 4-6; Start 10/16/17 at 14:00 Acetaminophen/ Hydrocodone Bitart ([place] (5/325)) 2 tab Q6H PRN PO SEVERE PAIN LEVEL 7-10; Start 10/16/17 at 14:00 Famotidine (Pepcid) 20 mg Q12 PO Last administered on 10/18/17 08:35; Admin Dose 20 MG; Start 10/16/17 at 21:00 Heparin Sodium (Porcine) (Heparin (5000 Units/0.5 ml)) 5,000 unit Q8 SC Last administered on 10/17/17 06:10; Admin Dose 5,000 UNIT; Start 10/16/17 at 22:00 ; Status Future Hold Ciprofloxacin (Cipro) 500 mg BID PO Last administered on 10/18/17 08:35; Admin Dose 500 MG; Start 10/16/17 at 20:00 Aspirin (Halfprin) 81 mg DAILY PO Last administered on 10/18/17 08:35; Admin Dose 81 MG; Start 10/17/17 at 09:00 Clopidogrel Bisulfate (plaVIX) 75 mg DAILY PO Last administered on 10/18/17 08 :35; Admin Dose 75 MG; Start 10/17/17 at 09:00 Cyanocobalamin (Vitamin B12) 1,000 mcg DAILY PO Last administered on 10/18/17 08:35; Admin Dose 1,000 MCG; Start 10/17/17 at 09:00 Gabapentin (Neurontin) 300 mg QID PO Last administered on 10/18/17 17:37; Admin Dose 300 MG; Start 10/16/17 at 21:00 Insulin Glargine (Lantus) 21 unit QHS SC Last administered on 10/17/17 20:55; Admin Dose 21 UNIT; Start 10/16/17 at 21:00 Prednisone (Prednisone) 1 mg BID PO Last administered on 10/18/17 08:35; Admin Dose 1 MG; Start 10/16/17 at 21:00 Prednisone (Prednisone) 2.5 mg QAM PO Last administered on 10/18/17 08:35; Admin Dose 2.5 MG; Start 10/17/17 at 09:00 Pantoprazole (Protonix Tab) 40 mg QAM PO Last administered on 10/18/17 08:35; Admin Dose 40 MG; Start 10/17/17 at 09:00 Moxifloxacin HCl (Vigamox) 1 drop QID LEFT EYE Last administered on 10/18/17 17:37; Admin Dose 1 DROP; Start 10/16/17 at 21:00 Bromfenac Sodium (Bromday) 1 drop BID PRN LEFT EYE pain; Start 10/16/17 at 14: 00 Diagnostic Test (Pha) (Accu-Chek) 1 ea 02 XX ; Start 10/17/17 at 02:00 Miscellaneous Information 1 ea NOTE XX ; Start 10/16/17 at 15:30 Glucose (Glutose) 15 gm Q15M PRN PO DECREASED GLUCOSE; Start 10/16/17 at 15:30 Glucose (Glutose) 22.5 gm Q15M PRN PO DECREASED GLUCOSE; Start 10/16/17 at 15: 30 Dextrose (D50w Syringe) 25 ml Q15M PRN IV DECREASED GLUCOSE; Start 10/16/17 at 15:30 Dextrose (D50w Syringe) 50 ml Q15M PRN IV DECREASED GLUCOSE; Start 10/16/17 at 15:30 Glucagon (Glucagen) 1 mg Q15M PRN IM DECREASED GLUCOSE; Start 10/16/17 at 15:30 Glucose (Glutose) 15 gm Q15M PRN BUCCAL DECREASED GLUCOSE; Start 10/16/17 at 15 :30 Morphine Sulfate 2 mg 2 mg Q2H PRN IV PAIN LEVEL 8-10 Last administered on 10/17 00:39; Admin Dose 2 MG; Start 10/16/17 at 19:00 Vancomycin HCl/ Dextrose/Water (Vancocin/D5W) 150 ml @ 75 mls/hr Q12H IVPB Last administered on 10/18/17 09:54; Admin Dose 75 MLS/HR; Start 10/17/17 at 21 :00 Losartan Potassium (Cozaar) 50 mg AM PO Last administered on 10/18/17 08:34; Admin Dose 50 MG; Start 10/18/17 at 09:00 Miscellaneous Information (*Rx Drug Level Order Reminder*) VANCOMYCIN TROUGH ON ... ONCE ONCE XX ; Start 10/18/17 at 20:00; Stop 10/18/17 at 20:01 VERONICA RODRIGUES MD Oct 18, 2017 19:39
[2017-10-18] MEDS: INSULIN GLARGINE [LANtus] 3 ML PEN SC SCH (20:31)
[2017-10-18 21:48] VITALS: BP 142/65; RESP 18
[2017-10-18] MEDS: ACETAMINOPHEN 325 MG TAB PO PRN (23:30)
[2017-10-19] MEDS: ACCU-CHEK XX SCH ×4 (01:38→20:40)
[2017-10-19 03:50] VITALS: BP 145/65; RESP 18
[2017-10-19] MEDS: INSULIN ASPART [NOVOLOG] 3 ML PEN SC SCH ×7 (08:15→20:38)
[2017-10-19 08:27] VITALS: BP 156/67; RESP 20
[2017-10-19] MEDS: PANTOPRAZOLE (EC) 40 MG TAB PO SCH (09:09)
[2017-10-19] MEDS: CIPROFLOXACIN 500 MG TAB PO SCH ×2 (09:10→20:29)
[2017-10-19] MEDS: CYANOCOBALAMIN 500 MCG TAB PO SCH (09:10)
[2017-10-19] MEDS: CLOPIDOGREL 75 MG TAB PO SCH (09:10)
[2017-10-19] MEDS: GABAPENTIN 300 MG CAP PO SCH ×4 (09:11→20:28)
[2017-10-19] MEDS: ASPIRIN (EC) 81 MG TAB PO SCH (09:11)
[2017-10-19] MEDS: FAMOTIDINE 20 MG TAB PO SCH ×2 (09:11→20:28)
[2017-10-19] MEDS: predniSONE 2.5 MG TAB PO SCH (09:11)
[2017-10-19] MEDS: LOSARTAN 50 MG TAB PO SCH (09:11)
[2017-10-19] MEDS: predniSONE 1 MG TAB PO SCH ×2 (09:12→20:29)
[2017-10-19] MEDS: MOXIFLOXACIN 0.5% 3 ML OPH LEFT EYE SCH ×4 (09:13→20:29)
--- NOTE | 2017-10-19 10:24 | PN ---
Date/Time of Note Date/Time of Note DATE: 10/19/17 TIME: 10:20 Assessment/Plan Lines/Catheters IV Catheter Type (from Nrsg): Saline Lock [place] in Place (from Nrsg): No Assessment/Plan Chief Complaint/Hosp Course POD 1 s/p I & D, arthrotomy, synovectomy of right wrist joint Problems: Assessment/Plan Doing well. All cultures= MSSA. Agree with d/c home later today with PICC line and antibiotics per ID. Daily dressing change at home dry gauze. Instructed to call my office and be seen Wed. 10/22. Subjective 24 Hr Interval Summary Comfortable overnight. Pain controlled with po acetaminophen. Drain fell out overnight. Constitutional: ambulates, no complaints Feeding: advancing diet Pain Control: well controlled Exam/Review of Systems Vital Signs Vitals Vital Signs Date Time Temp Pulse Resp B/P Pulse Ox O2 Delivery O2 Flow Rate FiO2 10/19/17 08:27 98.3 67 20 156/67 97 10/17/17 20:00 Room Air 10/17/17 15:59 2.0 Intake and Output 10/18/17 10/18/17 10/19/17 14:59 22:59 06:59 Intake Total 1430 ml 550 ml Output Total 805 ml 5 ml Balance 625 ml 545 ml Exam Additional Comments Incision at right wrist C/D/I decreasing swelling Results Result Diagram: 10/18/17 0537 10/18/17 0537 PAO CORDERO Oct 19, 2017 10:24
[2017-10-19] MEDS ORDERED: LIDOCAINE 1% (MPF) 5 ML VIAL SC ONE (15:30)
[2017-10-19] MEDS: VANCOMYCIN 500MG/NS (PMX) 100 ML IVPB SCH (15:55)
--- NOTE | 2017-10-19 16:25 | PN ---
Date/Time of Note Date/Time of Note DATE: 10/19/17 TIME: 16:20 Assessment/Plan VTE Prophylaxis VTE Prophylaxis Intervention: ambulation Lines/Catheters IV [facility]from [facility] Saline Lock Urinary Cath still in place: No Assessment/Plan Problems: (1) Septic joint of right wrist Status: Acute Comment: S/P arthrotomy and synovectomy of right wrist. Cultures positive for Staph Aureus. Will need correction ABX therapy Qualifiers: Septic arthritis organism: due to unspecified organism Qualified Code: M00.9 - Pyogenic arthritis of right wrist, due to unspecified organism (2) Essential (primary) hypertension Status: Chronic Comment: controlled (3) Adrenal insufficiency due to corticosteroid withdrawal Status: Chronic Comment: no issues (4) Diabetes mellitus type 2 in nonobese Status: Chronic Comment: Overall good glycemic control (5) Anemia Status: Acute Comment: asymptomatic Qualifiers: Anemia type: unspecified type Qualified Code: D64.9 - Anemia, unspecified type Assessment/Plan PICC line ordered and pending. Will arrange for HHN for retirement IV antibiotics. Subjective 24 Hr Interval Summary Free Text/Dictation Feeling okay. Exam/Review of Systems Vital Signs Vitals Vital Signs Date Time Temp Pulse Resp B/P Pulse Ox O2 Delivery O2 Flow Rate FiO2 10/19/17 08:27 98.3 67 20 156/67 97 10/17/17 20:00 Room Air 10/17/17 15:59 2.0 Intake and Output 10/18/17 10/18/17 10/19/17 15:00 23:00 07:00 Intake Total 1430 ml 550 ml Output Total 805 ml 5 ml Balance 625 ml 545 ml Exam Constitutional: alert, oriented Neck: supple Respiratory: clear to auscultation Cardiovascular: regular rate and rhythm Gastrointestinal: soft Extremities: normal pulses, other (right wrist bandage/cast) Results POC glucose reviewed Result Diagram: 10/18/17 0537 10/18/17 0537 Results 24 hrs Laboratory Tests Test 10/18/17 17:35 10/18/17 20:10 10/18/17 20:12 10/19/17 01:47 Bedside Glucose 194 242 H 192 Vancomycin Level Trough 17.8 Test 10/19/17 05:55 10/19/17 08:20 10/19/17 10:54 10/19/17 12:02 Lab Scanned Report BLOOD TRANSFUSION Bedside Glucose 135 151 139 Test 10/19/17 14:06 Bedside Glucose 178 Medications Medications Current Medications Acetaminophen (Tylenol Tab) 650 mg Q6H PRN PO PAIN LEVEL 1-3 OR FEVER Last administered on 10/18/17 23:30; Admin Dose 650 MG; Start 10/16/17 at 14:00 Acetaminophen/ Hydrocodone Bitart ([place] (5/325)) 1 tab Q6H PRN PO MODERATE PAIN LEVEL 4-6; Start 10/16/17 at 14:00 Acetaminophen/ Hydrocodone Bitart ([place] (5/325)) 2 tab Q6H PRN PO SEVERE PAIN LEVEL 7-10; Start 10/16/17 at 14:00 Famotidine (Pepcid) 20 mg Q12 PO Last administered on 10/19/17 09:11; Admin Dose 20 MG; Start 10/16/17 at 21:00 Heparin Sodium (Porcine) (Heparin (5000 Units/0.5 ml)) 5,000 unit Q8 SC Last administered on 10/17/17 06:10; Admin Dose 5,000 UNIT; Start 10/16/17 at 22:00 ; Status Future Hold Ciprofloxacin (Cipro) 500 mg BID PO Last administered on 10/19/17 09:10; Admin Dose 500 MG; Start 10/16/17 at 20:00 Aspirin (Halfprin) 81 mg DAILY PO Last administered on 10/19/17 09:11; Admin Dose 81 MG; Start 10/17/17 at 09:00 Clopidogrel Bisulfate (plaVIX) 75 mg DAILY PO Last administered on 10/19/17 09:10; Admin Dose 75 MG; Start 10/17/17 at 09:00; Status Future Hold Cyanocobalamin (Vitamin B12) 1,000 mcg DAILY PO Last administered on 09:10; Admin Dose 1,000 MCG; Start 10/17/17 at 09:00 Gabapentin (Neurontin) 300 mg QID PO Last administered on 10/19/17 13:57; Admin Dose 300 MG; Start 10/16/17 at 21:00 Insulin Glargine (Lantus) 21 unit QHS SC Last administered on 10/18/17 20:31; Admin Dose 21 UNIT; Start 10/16/17 at 21:00 Prednisone (Prednisone) 1 mg BID PO Last administered on 10/19/17 09:12; Admin Dose 1 MG; Start 10/16/17 at 21:00 Prednisone (Prednisone) 2.5 mg QAM PO Last administered on 10/19/17 09:11; Admin Dose 2.5 MG; Start 10/17/17 at 09:00 Pantoprazole (Protonix Tab) 40 mg QAM PO Last administered on 10/19/17 09:09 ; Admin Dose 40 MG; Start 10/17/17 at 09:00 Moxifloxacin HCl (Vigamox) 1 drop QID LEFT EYE Last administered on 10/19/17 13:58; Admin Dose 1 DROP; Start 10/16/17 at 21:00 Bromfenac Sodium (Bromday) 1 drop BID PRN LEFT EYE pain; Start 10/16/17 at 14: 00 Diagnostic Test (Pha) (Accu-Chek) 1 ea 02 XX ; Start 10/17/17 at 02:00 Miscellaneous Information 1 ea NOTE XX ; Start 10/16/17 at 15:30 Glucose (Glutose) 15 gm Q15M PRN PO DECREASED GLUCOSE; Start 10/16/17 at 15:30 Glucose (Glutose) 22.5 gm Q15M PRN PO DECREASED GLUCOSE; Start 10/16/17 at 15: 30 Dextrose (D50w Syringe) 25 ml Q15M PRN IV DECREASED GLUCOSE; Start 10/16/17 at 15:30 Dextrose (D50w Syringe) 50 ml Q15M PRN IV DECREASED GLUCOSE; Start 10/16/17 at 15:30 Glucagon (Glucagen) 1 mg Q15M PRN IM DECREASED GLUCOSE; Start 10/16/17 at 15:30 Glucose (Glutose) 15 gm Q15M PRN BUCCAL DECREASED GLUCOSE; Start 10/16/17 at 15 :30 Morphine Sulfate (morphine) 2 mg Q2H PRN IV PAIN LEVEL 8-10 Last administered on 10/17/17 00:39; Admin Dose 2 MG; Start 10/16/17 at 19:00 Losartan Potassium 50 mg 50 mg AM PO Last administered on 10/19/17 09:11; Admin Dose 50 MG; Start 10/18/17 at 09:00 Vancomycin HCl (Vancocin) 100 ml @ 100 mls/hr Q12H IVPB Last administered on 12/10/17at 15:55; Admin Dose 100 MLS/HR; Start 10/19/17 at 16:00 VERONICA RODRIGUES MD Oct 19, 2017 16:25
--- NOTE | 2017-10-19 16:35 | CONS ---
Date/Time of Note Date/Time of Note DATE: 10/19/17 TIME: 16:20 Assessment/Plan Assessment/Plan Chief Complaint/Hosp Course ID PROGRESS NOTE TOTAL ABX DAY CURRENT ABX=>Vanco IV + Cipro s/p Zosyn 24H INTERVAL SUMMARY * A/A/O -> tells me plan is for PICC tomorrow then home w/HH IV ABX, no fevers, WBC WNL, renal fx WNL * POD #2-> S/P 10/17/17 Right wrist joint arthrotomy with synovial biopsy/ tenosynovectomy and debridement/debridement of large, infected hematoma. * MICRO BCx + WRIST CX=> BLOOD CULTURE Final Organism 1 STAPHYLOCOCCUS AUREUS S AUREUS M.I.C. RX --------- --- CEFAZOLIN S CIPROFLOXACIN <=0.5 S CLINDAMYCIN <=0.25 S DOXYCYCLINE S ERYTHROMYCIN <=0.25 S LEVOFLOXACIN 0.25 S OXACILLIN 0.5 S PENICILLIN-G >=0.5 R RIFAMPIN <=0.5 S VANCOMYCIN <=0.5 S TRIMETHOPRIM/SULFAMETHOXAZOLE <=10 S EXAM GENERAL: VSS, NAD HEENT: Unremarkable NECK: Supple, full ROM CHEST: Rise symmetrical, without dyspnea on observation ABDOMEN: Soft, NT EXTREMITIES: Warm, wrist MAURICIO wrapped, LLEXT prosthetic leg SKIN: No diaphoresis, no rash ID ASSESSMENT: 61 yo M admit with: 1. Sepsis w/staph aureus septicemia 10/16/17 BCX (+) 2. Right wrist septic arthritis with cultures preliminarily growing Staphylococcus aureus. 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 Diabetes. 4. History of left below knee amputation. 5. Anemia. 6. Hypertension. INVASIVES: PIV ABX ALLERGY: KNDA CURRENT ABX=>Vanco IV + Cipro s/p Zosyn ID PLAN PER DR. CASTELLANO ->When cleared for DC home by primary provider. Patient may DC home with HH IV ABX as below INDICATION: Staph Aureus Left Septic Wrist s/p debridement 10/17/17-> DM II at risk 1. PICC Line routine care per Agency Policy- May DC PICC on last day of ABX IV therapy 2. Ceftriaxone 1 gm IVPB daily x 28 days from date of right wrist septic joint debridement on 10/17/17 => Last day 11/15/17 * -- NOTE: Ceftriaxone is not a vesicant and does not require renal lab monitoring. 3. Adjunctive Cipro 500mg po Q12H for a total of 42 days starting 10/17/17 = last day 11/28/17 ```````````````````````````````````````````````````````````````````````````````` ```````````````````````````````````````````````````````````````````````````````` `````````````````` THANK YOU . Problems: Consultation Date/Type/Reason Admit Date/Time Oct 16, 2017 at 13:55 Type of Consultation: ID Referring Provider: IJN BAEZ MD Exam/Review of Systems Vital Signs Vitals Vital Signs Date Time Temp Pulse Resp B/P Pulse Ox O2 Delivery O2 Flow Rate FiO2 10/19/17 08:27 98.3 67 20 156/67 97 10/17/17 20:00 Room Air 10/17/17 15:59 2.0 Intake and Output 10/18/17 10/18/17 10/19/17 14:59 22:59 06:59 Intake Total 1430 ml 550 ml Output Total 805 ml 5 ml Balance 625 ml 545 ml Results Result Diagram: 10/18/17 0537 10/18/17 0537 Results 24 hrs Laboratory Tests Test 10/18/17 17:35 10/18/17 20:10 12/9/17 20:12 10/19/17 01:47 Bedside Glucose 194 242 H 192 Vancomycin Level Trough 17.8 Test 10/19/17 05:55 10/19/17 08:20 10/19/17 10:54 10/19/17 12:02 Lab Scanned Report BLOOD TRANSFUSION Bedside Glucose 135 151 139 Test 10/19/17 14:06 Bedside Glucose 178 Medications Medications Current Medications Acetaminophen (Tylenol Tab) 650 mg Q6H PRN PO PAIN LEVEL 1-3 OR FEVER Last administered on 10/18/17 23:30; Admin Dose 650 MG; Start 10/16/17 at 14:00 Acetaminophen/ Hydrocodone Bitart ([place] (5/325)) 1 tab Q6H PRN PO MODERATE PAIN LEVEL 4-6; Start 10/16/17 at 14:00 Acetaminophen/ Hydrocodone Bitart ([place] (5/325)) 2 tab Q6H PRN PO SEVERE PAIN LEVEL 7-10; Start 10/16/17 at 14:00 Famotidine (Pepcid) 20 mg Q12 PO Last administered on 10/19/17 09:11; Admin Dose 20 MG; Start 10/16/17 at 21:00 Heparin Sodium (Porcine) (Heparin (5000 Units/0.5 ml)) 5,000 unit Q8 SC Last administered on 10/17/17 06:10; Admin Dose 5,000 UNIT; Start 10/16/17 at 22:00 ; Status Future Hold Ciprofloxacin (Cipro) 500 mg BID PO Last administered on 10/19/17 09:10; Admin Dose 500 MG; Start 10/16/17 at 20:00 Aspirin (Halfprin) 81 mg DAILY PO Last administered on 10/19/17 09:11; Admin Dose 81 MG; Start 10/17/17 at 09:00 Clopidogrel Bisulfate (plaVIX) 75 mg DAILY PO Last administered on 10/19/17 09:10; Admin Dose 75 MG; Start 10/17/17 at 09:00; Status Future Hold Cyanocobalamin (Vitamin B12) 1,000 mcg DAILY PO Last administered on 09:10; Admin Dose 1,000 MCG; Start 10/17/17 at 09:00 Gabapentin (Neurontin) 300 mg QID PO Last administered on 10/19/17 13:57; Admin Dose 300 MG; Start 10/16/17 at 21:00 Insulin Glargine (Lantus) 21 unit QHS SC Last administered on 10/18/17 20:31; Admin Dose 21 UNIT; Start 10/16/17 at 21:00 Prednisone (Prednisone) 1 mg BID PO Last administered on 10/19/17 09:12; Admin Dose 1 MG; Start 10/16/17 at 21:00 Prednisone (Prednisone) 2.5 mg QAM PO Last administered on 10/19/17 09:11; Admin Dose 2.5 MG; Start 10/17/17 at 09:00 Pantoprazole (Protonix Tab) 40 mg QAM PO Last administered on 10/19/17 09:09 ; Admin Dose 40 MG; Start 10/17/17 at 09:00 Moxifloxacin HCl (Vigamox) 1 drop QID LEFT EYE Last administered on 10/19/17 13:58; Admin Dose 1 DROP; Start 10/16/17 at 21:00 Bromfenac Sodium (Bromday) 1 drop BID PRN LEFT EYE pain; Start 10/16/17 at 14: 00 Diagnostic Test (Pha) (Accu-Chek) 1 ea 02 XX ; Start 10/17/17 at 02:00 Miscellaneous Information 1 ea NOTE XX ; Start 10/16/17 at 15:30 Glucose (Glutose) 15 gm Q15M PRN PO DECREASED GLUCOSE; Start 10/16/17 at 15:30 Glucose (Glutose) 22.5 gm Q15M PRN PO DECREASED GLUCOSE; Start 10/16/17 at 15: 30 Dextrose (D50w Syringe) 25 ml Q15M PRN IV DECREASED GLUCOSE; Start 10/16/17 at 15:30 Dextrose (D50w Syringe) 50 ml Q15M PRN IV DECREASED GLUCOSE; Start 10/16/17 at 15:30 Glucagon (Glucagen) 1 mg Q15M PRN IM DECREASED GLUCOSE; Start 10/16/17 at 15:30 Glucose (Glutose) 15 gm Q15M PRN BUCCAL DECREASED GLUCOSE; Start 10/16/17 at 15 :30 Morphine Sulfate (morphine) 2 mg Q2H PRN IV PAIN LEVEL 8-10 Last administered on 10/17/17 00:39; Admin Dose 2 MG; Start 10/16/17 at 19:00 Losartan Potassium 50 mg 50 mg AM PO Last administered on 10/19/17 09:11; Admin Dose 50 MG; Start 10/18/17 at 09:00 Vancomycin HCl (Vancocin) 100 ml @ 100 mls/hr Q12H IVPB Last administered on 10/19/17 15:55; Admin Dose 100 MLS/HR; Start 10/19/17 at 16:00 DONAL TREVIZO NP Oct 19, 2017 16:30
[2017-10-19 18:48] VITALS: BP 133/61; PULSE 83; RESP 18
[2017-10-19 19:52] VITALS: BP 173/76; RESP 20
[2017-10-19] MEDS: INSULIN GLARGINE [LANtus] 3 ML PEN SC SCH (20:48)
[2017-10-19 22:30] VITALS: BP 144/64; PULSE 79
[2017-10-19] MEDS: ACETAMINOPHEN 325 MG TAB PO PRN (22:34)
[2017-10-19 22:35] VITALS: BP 142/78; PULSE 79
[2017-10-20] MEDS: ACCU-CHEK XX SCH ×3 (02:00→15:15)
[2017-10-20 02:06] VITALS: BP 132/61; RESP 18
[2017-10-20] MEDS: VANCOMYCIN 500MG/NS (PMX) 100 ML IVPB SCH (04:40)
[2017-10-20 06:24] LABS: CREATININE 1.49 mg/dl (0.61-1.24)
[2017-10-20 07:45] VITALS: BP 131/60; RESP 18
[2017-10-20] MEDS: INSULIN ASPART [NOVOLOG] 3 ML PEN SC SCH ×6 (08:15→18:17)
[2017-10-20] MEDS: CIPROFLOXACIN 500 MG TAB PO SCH (08:25)
[2017-10-20] MEDS: ASPIRIN (EC) 81 MG TAB PO SCH (08:25)
[2017-10-20] MEDS: predniSONE 1 MG TAB PO SCH (08:25)
[2017-10-20] MEDS: CYANOCOBALAMIN 500 MCG TAB PO SCH (08:25)
[2017-10-20] MEDS: GABAPENTIN 300 MG CAP PO SCH ×3 (08:25→16:51)
[2017-10-20] MEDS: predniSONE 2.5 MG TAB PO SCH (08:25)
[2017-10-20] MEDS: MOXIFLOXACIN 0.5% 3 ML OPH LEFT EYE SCH ×3 (08:26→16:52)
[2017-10-20] MEDS: LOSARTAN 50 MG TAB PO SCH (08:26)
[2017-10-20] MEDS: PANTOPRAZOLE (EC) 40 MG TAB PO SCH (10:30)
[2017-10-20] MEDS: FAMOTIDINE 20 MG TAB PO SCH (10:30)
[2017-10-20 14:05] VITALS: BP 142/64; RESP 20
--- NOTE | 2017-10-20 15:48 | PN ---
DATE: 10/20/2017 SUBJECTIVE: No acute changes overnight. The patient is alert, feels good, looks comfortable, no fevers. MICROBIOLOGY: Aspirated right hand fluid, culture growing oxacillin-sensitive Staphylococcus aureus. Blood culture on admission also was positive for Staphylococcus aureus. ANTIMICROBIALS: The patient is on IV vancomycin and oral ciprofloxacin. PHYSICAL EXAMINATION: GENERAL: Well-developed elderly man who is alert, in no distress. HEENT: Head atraumatic, normocephalic. Sclerae anicteric. Buccal mucosa pink. NECK: Supple. CHEST: Rise symmetrical. Breath sounds clear. HEART: S1, S2. ABDOMEN: Soft, bowel tones present. EXTREMITIES: With right hand dressing intact. The patient has finger swollen. ASSESSMENT: 1. Right wrist septic arthritis, status post incision and drainage. 2. Diabetes. 3. Hypertension. 4. History of left below knee amputation. PLAN: We are going to discontinue vancomycin and start the patient on Rocephin. Pending PICC line, the patient to be discharged home on current antibiotics until 11/25/2017 with Rocephin and we will continue him on Cipro until 11/28/2017. The patient to follow with hand surgery outpatiently. Dictated By: JOB PLASCENCIA MEDICAL PARASITOLOGIST for TYRELL KNAPP/BILL Conf#: [id number] DID#: [id number]
[2017-10-20] MEDS ORDERED: CEFTRIAXONE 1 GM/50 ML (PMX) 50 ML IVPB SCH ×2 (16:00→17:00)
--- NOTE | 2017-10-20 17:33 | DS ---
Date/Time of Note Date/Time of Note DATE: 10/20/17 TIME: 17:28 Discharge Summary Admission/Discharge Info Admit Date/Time Oct 16, 2017 at 13:55 Discharge Date/Time October 20 2017 Discharge Diagnosis Staph aureus septic arthritis of the right wrist; peripheral vascular disease; diabetes mellitus type 2; adrenal insufficiency; testicular hypofunction; diabetic peripheral neuropathy; anemia Patient Condition: Fair Consults Hand surgery-Dr. Cordero; rheumatology, Dr. Vallejo; infectious disease-Dr. Castellano Procedures DATE OF OPERATION: 10/17/2017 PREOPERATIVE DIAGNOSIS: Right wrist hematoma, rule out septic wrist, rule out inflammatory arthritis of wrist. POSTOPERATIVE DIAGNOSIS: Right wrist hematoma, rule out septic wrist, rule out inflammatory arthritis of wrist. PROCEDURE: 1. Right wrist joint arthrotomy with synovial biopsy. 2. Right wrist tenosynovectomy and debridement. 3. Right wrist debridement of large, infected hematoma. 4. Short arm fiberglass splint application. Hx of Present Illness Mr. Estevez is a charming 61-year-old gentleman with a history of diabetes mellitus type 2 comes in with a right wrist probable septic arthritis. He has a history of diabetes with multiple complications and had been seen in my office on August 27, 2017 complaining of left hand wrist tenderness for 5 days. He was seen quite nicely by Dr. Cordero I believe on the same day and was treated appropriately. There was a concern that this represented gout or pseudogout and the patient ultimately sometime in September reports that he had a steroid injection. Shortly after that he did some labor using the hand and also bumped the right wrist suffering an abrasion as he describes it the day after his steroid injection. He has subsequently developed much worsening swelling pain tenderness limited range of motion and has now started to develop fevers without rigors or sweats. He was seen in consultation by rheumatology today and had an aspiration with the result looking somewhat purulent. He was now been sent over for admission, consultation, IV antibiotics. Hospital Course Patient was admitted after aspiration of the right wrist from the sleeve setter lockstitch 's office. Please note those results are still pending but he did have calcium pyrophosphate crystals intracellularly in specimen by verbal report to myself. He had surgical debridement of the wrist here by Dr. Cordero successfully identifying staph aureus both blood cultures and wound cultures. He is now on antibiotics as recommended by infectious diseases. He is now discharged in improved condition as compared to the time of admission. Home Meds Active Scripts Ergocalciferol* (Drisdol* (Vitamin D2)) 50,000 Unit Cap, [address]91 UNIT PO Fr@09, # 10 CAP Prov:BURT STOVALL MD 12/08/15 Insulin Glargine* (Lantus*) 100 Unit/Ml Soln, 10 UNIT SC Q12 for 30 Days, 2 Refills Prov:BURT STOVALL MD 12/08/15 Reported Medications Cyanocobalamin* (Vitamin B12*) 500 Mcg Tab, 1000 MCG PO DAILY, TAB 02/16/16 [tear dropps] No Conflict Check 12/26/15 Ondansetron Hcl* (Zofran*) 4 Mg Tablet, 4 MG PO Q8, TAB 12/26/15 Omeprazole* (Omeprazole*) 10 Mg Capsule.dr, 10 MG PO DAILY, #30 CAP 12/26/15 Aspirin* (Aspirin* EC) 81 Mg Tablet.dr, 81 MG PO DAILY, TAB 12/26/15 Clopidogrel Bisulfate (Clopidogrel) 75 Mg Tablet, 75 MG PO DAILY, #30 TAB 12/26/15 Prednisone* (Prednisone*) 1 Mg Tablet, 1 MG PO QPM, TAB 12/26/15 Loperamide Hcl* (Imodium*) 2 Mg Capsule, 2 MG PO .WITH EACH DIARRHEA Y for DIARRHEA, CAP MAX 16 mg/day 11/30/15 Pseudoephedrin Hcl* (Nexafed) 30 Mg Tablet, 30 MG PO DAILY Y for CONGESTION, TAB 11/30/15 Prednisone* (Prednisone*) 5 Mg Tab, 3.5 MG PO QAM, TAB 11/30/15 Gabapentin* (Gabapentin*) 300 Mg Capsule, 300 MG PO QID, #90 CAP 11/30/15 Follow-up Plan Hand surgery in 1 week infectious disease in 4 weeks primary care doctor in 2 week Primary Care Provider Burt Stovall MD Time spent on discharge: > 30 minutes Pending Labs Laboratory Tests Test 10/19/17 20:36 10/20/17 04:53 10/20/17 08:23 10/20/17 10:19 Bedside Glucose 156mg/dL (70-220) 75mg/dL (70-220) 106mg/dL (70-220) Blood Urea Nitrogen 20mg/dl (7-20) Creatinine 1.49mg/dl (0.61-1.24) Test 10/20/17 12:11 10/20/17 15:18 Bedside Glucose 104mg/dL (70-220) 143mg/dL (70-220) Copies To: CC: TYRELL CASTELLANO MD; RICARDO VALLEJO MD; PAO CORDERO JOSHUA A MD Oct 20, 2017 17:33
--- NOTE | 2017-10-20 17:33 | PDOCDIS ---
Discharge Instructions DIAGNOSIS Discharge Diagnosis Staph aureus septic arthritis of the right wrist; peripheral vascular disease; diabetes mellitus type 2; adrenal insufficiency; testicular hypofunction; diabetic peripheral neuropathy; anemia CONDITION Patient Condition: Fair HOME CARE INSTRUCTIONS: Special Diet: carb control ACTIVITY: Activity Restrictions: Slowly Increase Activity Avoid heavy lifting Do not operate Machinery Do not operate Power Tool FOLLOW UP/APPOINTMENTS Follow-up Plan Hand surgery in 1 week infectious disease in 4 weeks primary care doctor in 2 week JIN BAEZ MD Oct 20, 2017 17:33
[2017-10-20] MEDS ORDERED: CIPR500T4 PO (17:35)
[2017-10-20] MEDS ORDERED: LOSA50TA2 PO (17:35)
--- NOTE | 2017-10-20 18:35 | RADRPT ---
PROCEDURE: US guidance for PICC line CLINICAL INDICATION: PICC line placement TECHNIQUE: Multiple real-time images were acquired of the patient's arm utilizing a high resolutio n transducer. This was performed by the PICC line nurse for venous access. COMPARISON: None FINDINGS: See impression. IMPRESSION: Ultrasound guidance for PICC line placement. There is a patent and compressible left upper extremity vein. RPTAT: AA Physician Yuriy Date Time Electronically viewed and signed by Matthew Fay Physician on 10/20/2017 18:35 RA/
--- NOTE | 2017-10-20 18:59 | RADRPT ---
PROCEDURE: XR Chest. CLINICAL INDICATION: Check Line Placement TECHNIQUE: Single frontal view of the chest was obtained. COMPARISON: Chest x-ray from 10/16/2017 FINDINGS: A left-sided PICC line is again noted with its tip in the distal SVC, unchanged. Stable mild cardiomegaly and mild pulmonary vascular congestion. No focal infiltrates are identified. There is a new small left pleural effusion. IMPRESSION: New small left pleural effusion. Stable mild cardiomegaly and mild pulmonary vascular congestion. Right-sided PICC line again noted. RPTAT: EE Physician Yuriy Date Time Electronically viewed and signed by Matthew Fay Physician on 10/20/2017 18:59 RA/
== END 2017-10-20 19:05 | disposition home health service (06) | DRG 854 ==
LOC: E/R 12:46 → MS2 13:55
PROVIDERS: ADMIT Internal Medicine; ATTEND Internal Medicine
PROC: 0LB50ZZ Excision of Right Lower Arm and Wrist Tendon, Open Approach (ICD-10-PCS; 2017-10-17)
PROC: 0PBM0ZZ Excision of Right Carpal, Open Approach (ICD-10-PCS; principal; 2017-10-17 13:30)
PROC: 02HV33Z Insertion of Infusion Device into Superior Vena Cava, Percutaneous Approach (ICD-10-PCS; 2017-10-20)
PROC: B54NZZA Ultrasonography of Left Upper Extremity Veins, Guidance (ICD-10-PCS; 2017-10-20)
DX: A41.01 Sepsis due to Methicillin susceptible Staphylococcus aureus (principal); M00.031 Staphylococcal arthritis, right wrist; E11.42 Type 2 diabetes mellitus with diabetic polyneuropathy; E11.51 Type 2 diabetes mellitus with diabetic peripheral angiopathy without gangrene; E27.49 Other adrenocortical insufficiency; I10 Essential (primary) hypertension; D64.9 Anemia, unspecified; E55.9 Vitamin D deficiency, unspecified; B95.61 Methicillin susceptible Staphylococcus aureus infection as the cause of diseases classified elsewhere; E29.1 Testicular hypofunction; J45.909 Unspecified asthma, uncomplicated; Z89.021 Acquired absence of right finger(s); Z89.512 Acquired absence of left leg below knee; Z79.82 Long term (current) use of aspirin; Z79.4 Long term (current) use of insulin
CPT/HCPCS: 36415; 36430; 36569; 71010; 76937; 80048; 80053; 80202; 82270; 82565; 82962; 83036; 83605; 84484; 84520; 85025; 85610; 85730; 86850; 86900; 86901; 86920; 87040; 87070; 87075; 87116; 88304; 90686; 93005; 96374; J0696; J1071; J1100; J1644; J1815; J2250; J2270; J2405; J2543; J2765; J3010; J3370; J7030; J7050; J7512; P9016